=== PATIENT | male | born 1960 | race Caucasian/White ===

== ENCOUNTER → 2019-12-05 09:23 | Outpatient (BNVA) | payer BC, SELFPAY | PROVIDERS: PCP Nurse Practitioner Family; Visit Provider Urology | DX: R97.20 Elevated prostate specific antigen [PSA] (principal); R39.9 Unspecified symptoms and signs involving the genitourinary system | CPT/HCPCS: 81001; 84153 ==

== ENCOUNTER → 2020-03-06 09:22 | Outpatient (BNVA) | payer BC, SELFPAY | PROVIDERS: PCP Nurse Practitioner Family; Visit Provider Urology | DX: R97.20 Elevated prostate specific antigen [PSA] (principal); R39.9 Unspecified symptoms and signs involving the genitourinary system | CPT/HCPCS: 81001; 84153 ==

== ENCOUNTER → 2020-09-08 09:16 | Outpatient (BNVA) | payer OTHER, SELFPAY | PROVIDERS: PCP Nurse Practitioner Family; Visit Provider Urology | DX: R39.9 Unspecified symptoms and signs involving the genitourinary system (principal); R97.20 Elevated prostate specific antigen [PSA]; N40.1 Benign prostatic hyperplasia with lower urinary tract symptoms | CPT/HCPCS: 81003; 84153 ==

== ENCOUNTER → 2021-03-11 09:50 | Outpatient (BNVA) | payer OTHER, SELFPAY | PROVIDERS: PCP Nurse Practitioner Family; Visit Provider Urology | DX: N40.1 Benign prostatic hyperplasia with lower urinary tract symptoms (principal); R39.9 Unspecified symptoms and signs involving the genitourinary system; R97.20 Elevated prostate specific antigen [PSA]; N39.9 Disorder of urinary system, unspecified | CPT/HCPCS: 81003; 84153 ==

== ENCOUNTER 2021-12-09 11:05 | Outpatient (CLI) | payer OTHER, SELFPAY ==
--- NOTE | 2021-12-09 | US_ITS ---
WS: [id number] Gallbladder and right upper quadrant ultrasound, 12/09/2021 Clinical Data: ABDOMINAL PAIN COLICKY Comparison: None. Findings: The gallbladder shows no sludge or stone. The wall measures 0.13 cm with no pericholecystic fluid. The common bile duct is 0.24 cm and there are no intrahepatic ductal abnormalities. Liver shows no cysts or dilated intrahepatic ducts. The liver is dense and shows fatty infiltration. The liver measures 16.1 x 17.7 cm. There are areas of relatively decreased density in the medial aspe ct of the right lobe measuring 4.9 x 5.6 x 7.0 cm and in the inferior aspect of the right lobe measur ing 3.8 x 5.8 x 6.7 cm. These could represent areas of focal fat but CT scan of the liver is recommen ded The pancreas is not obscured by overlying bowel gas and no cyst, pseudocyst, or evidence of pancreati tis is noted. There is abundant fat surrounding the pancreas. Right kidney measures 11.4 cm and no cyst, masses or hydronephrosis can be seen. The aorta and inferior vena cava show no vascular abnormalities. US/US abdomen limited [id number] Impression: 1. Areas of decreased density in the right lobe of the liver which have no spec ific pattern but recommend CT scan of the liver. 2. Dense enlarged liver with fatty infiltration.
== END 2021-12-09 11:06 | disposition home or self-care (01) ==
LOC: RADOUTREAD 11:07
PROVIDERS: PCP Nurse Practitioner Family; Visit Provider Nurse Practitioner Family
DX: R10.84 Generalized abdominal pain (principal); K76.0 Fatty (change of) liver, not elsewhere classified
CPT/HCPCS: 76705

== ENCOUNTER 2022-03-18 10:17 | Emergency (ER) | payer OTHER, SELFPAY ==
[2022-03-18 10:24] VITALS: BP 174/90; PULSE 54; RESP 18; TEMP 36.4; O2SAT 97
--- NOTE | 2022-03-18 10:36 | XR_ITS ---
WS: [id number] Portable AP upright chest, 03/18/2022 Clinical Data: dyspnea/cough Comparison: None. Findings: No nodules, masses or effusions are seen. The heart is likely enlarged. The pulmonary vascu larity is not increased. No pneumonia or pneumothorax is seen. The aortic arch and descending thoraci c aorta show mild tortuosity. There are monitor leads on the chest wall. XR/XR chest 1V portable [id number] Impression: Cardiomegaly and atherosclerosis.
--- NOTE | 2022-03-18 10:36 | ECG_ITS ---
[facility] Test Date: 2022-03-18 Pat Name: Woodrow Hunter Department: Room: Gender: Male Test Driver: : 1960 Requested By: Marty Cordon Order Number: [id number] Dariel MD: Johan Quintana M.D. Measurements Intervals [place] Rate: 48 P: 26 TN: 167 QRS: -38 QRSD: 114 T: 15 QT: 427 QTc: 384 Interpretive Statements SINUS BRADYCARDIA LEFT AXIS DEVIATION [QRS AXIS < -30] INCOMPLETE RIGHT BUNDLE BRANCH BLOCK [90+ ms QRS DURATION, TERMINAL R IN V1/V2, 40+ ms S IN I/aVL/V4/V5/V6] MINIMAL VOLTAGE CRITERIA FOR LVH, CONSIDER NORMAL VARIANT [MEETS CRITERIA IN ONE OF: R(aVL), S(V1), R(V5), R(V5/V6)+S(V1)] No previous ECG available for comparison Electronically Signed On 03-19-2022 14:33:23 CDT by Johan Quintana M.D. [email or web address]
[2022-03-18 10:45] VITALS: BP 173/83; PULSE 50; RESP 20; TEMP 36.4; O2SAT 97
[2022-03-18 10:49] VITALS: BP 141/78; BP 146/75; BP 153/86
--- NOTE | 2022-03-18 10:49 | W.ED.DIZZY ---
HPI - Dizziness General: Chief Complaint: Dizziness Stated Complaint: dizzy, n/v Time Seen by Provider: 03/18/22 10:22 Source: patient Mode of arrival: ambulatory Limitations: no limitations History of Present Illness: HPI Narrative: 62-year-old male presents emergency room complaining of near syncopal episode. This morning he was around up around his home doing his usual activities he was walking and felt lightheaded and dizzy he gets nauseous and has vertiginous-like symptoms he notices those symptoms worsen when he leans back. He has a chronic bradycardia that he is known of for years and on arrival here his heart rates in the upper 40s and low 50s he states has been normal for him. He is not on any beta-blockers or any negative [place] tropes. He has no known history of coronary artery disease both of his parents did of coronary artery disease at advanced ages. His mother in her late 60s Father in his 70s. He is on lisinopril and tamsulosin as well as Crestor is not recently changed any medications. Is a known history of a sending aortic aneurysm that is been monitored. He is a little behind on his monitoring. He has not had any chest pain or back pain associated with the symptoms. MD elicited complaint: dizziness Onset (ago): hour(s) Timing: gradual onset Severity: mild Description: room spinning and lightheadedness Context: change in body position Exacerbating factors: movement/ambulation and change in body position Relieving factors: remaining still Associated symptoms: Denies chest pain, chills, malaise, nausea, nasal congestion or vomiting Associated neuro symptoms: Deny confusion, difficulty speaking, dysphagia, extremity weakness, facial numbness, facial weakness, gait changes, numbness in extremities or visual changes Review of Systems Const: Denies: fever(s), chills, body aches, change in appetite, fatigue or malaise ENMT: Denies: throat pain, ear or mastoid pain, nasal discharge or nasal congestion Card: Denies: chest pain, edema, dyspnea on exertion or orthopnea Resp: Denies: dyspnea, productive cough or non-productive cough GI: Denies: abdominal pain, nausea, vomiting, hematemesis, coffee ground emesis, dysphagia, diarrhea, constipation, bloating, hematochezia or melena : Denies: flank pain, dysuria, urinary frequency or urinary urgency Skin/Breast: Denies: rash or pruritus Neuro: Denies: numbness in extremities or confusion PFSH ED PFSH: Medical History (Updated 03/26/22 @ 00:02 by ) Elevated PSA Lower urinary tract symptoms (LUTS) Surgical History Hx of arthroscopy of right knee Family History Mother , AT AGE 64 Heart disease Father Healthy adult Other CAD (coronary artery disease) Social History Smoking and tobacco status: never smoked Alcohol intake: current Alcohol intake frequency: few times a month Adopted: No Caregiver/support person: No Lives independently: No Household members: spouse Marital status: Current occupational status: employed History of recent travel: No Current gender identity: Male Physical Exam Const: COMMON NORMALS: no acute distress GENERAL APPEARANCE: cooperative and comfortable ORIENTATION/CONSCIOUSNESS: Yes awake, Yes oriented to person, Yes oriented to place and Yes oriented to time HENMT: COMMON NORMALS: normocephalic, atraumatic, hearing grossly normal bilaterally, external ears normal, EAC's normal, TM's normal bilaterally, Normal nasal mucous membranes and turbinates present, moist oral mucous membranes and oropharynx normal HEAD & SCALP: normocephalic and atraumatic NOSE: Normal nasal mucous membranes and turbinates present EXTERNAL EAR: Yes external ears normal EXTERNAL AUDITORY CANAL: EAC's normal TYMPANIC MEMBRANE: TM's normal bilaterally Eye: COMMON NORMALS: Equal, round and reactive pupils present, EOMs intact bilaterally, conjunctivae normal and no scleral icterus CONJUNCTIVA: Yes conjunctivae normal PUPIL: Yes Equal, round and reactive pupils present Neck/C-Spine: COMMON NORMALS: full ROM, no lymphadenopathy, supple and no JVD Resp: COMMON NORMALS: normal respiratory effort, No retractions, No use of accessory muscles and clear to auscultation bilaterally AUSCULTATION: clear to auscultation bilaterally Cardio: COMMON NORMALS: no JVD, regular rate, regular rhythm and No murmurs present (Cardio) RATE: regular rate RHYTHM: regular rhythm GI: COMMON NORMALS: Soft to palpation and No hepatosplenomegaly present AUSCULTATION: Yes normoactive bowel sounds PALPATION: Yes Soft to palpation, No Tenderness to palpation present (GI), No Guarding due to palpation present (GI) and Yes No hepatosplenomegaly present Extremity: COMMON NORMALS: normal to inspection, capillary refill normal, no clubbing, cyanosis or edema, no calf tenderness and no pedal edema Neuro: SENSORIUM/ORIENTATION: Yes oriented to person, Yes oriented to place and Yes oriented to time OTHER: Neurological intact no focal neurologic deficits are noted on exam Skin: COMMON NORMALS: no rashes or lesions noted GENERAL SKIN EXAM: no rashes or lesions noted Course Vital Signs: Vital signs: Vital Signs Temperature 97.5 F L 03/18/22 14:35 Pulse Rate 55 L 03/18/22 14:35 Respiratory Rate 17 03/18/22 14:35 Blood Pressure 131/89 03/18/22 14:35 Pulse Oximetry 96 03/18/22 14:35 Oxygen Delivery Me thod 03/18/22 10:45 MDM - Dizziness Medical Decision Making Labs imaging and EKG reviewed as found in the chart. Was able to reproduce symptoms with movement of head. Medical Records I reviewed the patient's medical records. Lab Data I reviewed the patient's lab results. : 03/18/22 11:03 03/18/22 11:03 Radiology Impressions Chest X-Ray 03/18/22 10:36 Impression: Cardiomegaly and atherosclerosis. Laboratory Results WBC 6.4 10^3/uL (4.0-10.0) 03/18/22 11:03 RBC 5.14 10^6/uL (4.1-5.3) 03/18/22 11:03 Hgb 16.4 g/dL (11.7-16.6) 03/18/22 11:03 Hct 47.3 % (42.0-52.0) 03/18/22 11:03 MCV 92.0 fl (80-94) 03/18/22 11:03 MCH 31.9 pg (28.0-34.0) 03/18/22 11:03 MCHC 34.7 g/dL (30.0-36.0) 03/18/22 11:03 RDW 12.7 % (12.1-15.1) 03/18/22 11:03 Plt Count 254 10^3/cmm (130-400) 03/18/22 11:03 MPV 8.6 fL (7.4-10.4) 03/18/22 11:03 Neut % (Auto) 54.1 % 03/18/22 11:03 Lymph % (Auto) 34.6 % 03/18/22 11:03 [place] % (Auto) 8.6 % 03/18/22 11:03 Eos % (Auto) 1.9 % 03/18/22 11:03 Baso % (Auto) 0.5 % 03/18/22 11:03 Neut # (Auto) 3.45 10^3/uL (1.8-7.7) 03/18/22 11:03 Lymph # (Auto) 2.2 10^3/uL (0.8-4.8) 03/18/22 11:03 [place] # (Auto) 0.6 10^3/uL (0.2-0.9) 03/18/22 11:03 Eos # (Auto) 0.1 10^3/uL (0.0-0.8) 03/18/22 11:03 Baso # (Auto) 0.0 10^3/uL (0.0-0.1) 03/18/22 11:03 Nucleated RBC % (auto) 0 % 03/18/22 11:03 Nucleated RBCs # 0.0 /100WBC 03/18/22 11:03 Sodium 132 mmol/L (136-145) L 03/18/22 11:03 Potassium 4.1 mmol/L (3.5-5.1) 03/18/22 11:03 Chloride 98 mmol/L (98-107) 03/18/22 11:03 Carbon Dioxide 25 mmol/L (22-29) 03/18/22 11:03 Anion Gap 13.1 (5-19) 03/18/22 11:03 BUN 14 mg/dL (8-23) 03/18/22 11:03 Creatinine 0.8 mg/dL (0.7-1.2) 03/18/22 11:03 GFR Calculation 97.6 mL/min (90-130) 03/18/22 11:03 Glucose 124 mg/dL (65-115) H 03/18/22 11:03 Calculated Osmolality 276 mOsm/kg (285-295) L 03/18/22 11:03 Calcium 9.3 mg/dL (8.5-10.5) 03/18/22 11:03 Total Bilirubin 0.5 mg/dL (0.15-1.2) 03/18/22 11:03 AST 27 U/L (0-40) 03/18/22 11:03 ALT 28 U/L (0-41) 03/18/22 11:03 Alkaline Phosphatase 85 U/L (40-130) 03/18/22 11:03 Troponin T Baseline 9 ng/L (0-15) 03/18/22 11:03 Troponin T 120 Minute 11.18 ng/L (0-15) 03/18/22 13:08 Delta Troponin T 2.18 ABS# (0-10) 03/18/22 13:08 Total Protein 7.1 g/dL (6.6-8.7) 03/18/22 11:03 Albumin 4.4 g/dL (3.5-5.2) 03/18/22 11:03 Globulin 2.7 g/dL (1.3-4.6) 03/18/22 11:03 Urine Color Yellow (Yellow) 03/18/22 12:58 Urine Appearance Clear (CLEAR) 03/18/22 12:58 Urine pH 9 (5-7) H 03/18/22 12:58 Ur Specific [place] 1.010 (1.005-1.030) 03/18/22 12:58 Urine Protein Neg (Negative) 03/18/22 12:58 Urine Glucose (UA) Norm (Normal) 03/18/22 12:58 Urine Ketones Negative (Negative) 03/18/22 12:58 Urine Blood Neg (Negative) 03/18/22 12:58 Urine Nitrate Negative (Negative) 03/18/22 12:58 Urine Bilirubin Neg (Negative) 03/18/22 12:58 Prot Sulfosalicylic Acd Negative (Negative) 03/18/22 12:58 Urine Urobilinogen Norm mg/dL (Negative) 03/18/22 12:58 Ur Leukocyte Esterase Negative (Negative) 03/18/22 12:58 Discharge Plan Discharge Patient Disposition: Home Clinical Impression: Hypertension, Benign paroxysmal positional vertigo, Bradycardia, Aneurysm, thoracic aortic Condition: Stable Prescriptions: New amlodipine 5 mg tablet 5 mg PO DAILY Qty: 30 0RF meclizine 25 mg tablet 25 mg PO QID PRN (Reason: dizziness) Qty: 20 0RF No Action rosuvastatin 20 mg tablet 20 mg PO DAILY tamsulosin 0.4 mg capsule 0.4 mg PO DAILY PRN lisinopril 10 mg tablet See Rx Instructions .ROUTE .COMPLEX Qty: 30 0RF Dose Instruction: TAKE 1 TABLET BY MOUTH DAILY Rx Instructions: TAKE 1 TABLET BY MOUTH DAILY Discharge Orders: Discharge ED (Routine); Ordered 03/18/22 Ordered By: Marty Johnson Referrals: Yesenia Jordan FNP [Primary Care Provider] - Discharge Diet: Usual diet Discharge Activity: Limit activity as instructed Patient Instructions: Opioid Safety Activity Restrictions/Additional Instructions: Case management make arrangements for 48-hour Holter monitor and Lexiscan stress test. You should follow-up with Dr. Michele. If you have any worsening problems return. Continue lisinopril add amlodipine. Use meclizine as needed to relieve dizziness symptoms. Return if you have further problems. You should follow-up with Dr. Michele for continued monitoring for the thoracic aortic aneurysm. Coding Level of Care Code ED Juke Box Servicer for Marino Monroe
[2022-03-18 10:58] VITALS: BMI 31.1
[2022-03-18 11:08] LABS: Basophils % 0.5 %; Eosinophils # 0.1 10^3/uL (0.0-0.8); Eosinophils % 1.9 %; Hematocrit 47.3 % (42.0-52.0); Hemoglobin 16.4 g/dL (11.7-16.6); Lymphocytes # 2.2 10^3/uL (0.8-4.8); Lymphocytes % 34.6 %; Mean Corpuscular HGB Conc 34.7 g/dL (30.0-36.0); Mean Corpuscular Hemoglobin 31.9 pg (28.0-34.0); Mean Platelet Volume 8.6 fL (7.4-10.4); Monocytes # 0.6 10^3/uL (0.2-0.9); Monocytes % 8.6 %; Neutrophils # 3.45 10^3/uL (1.8-7.7); Neutrophils % 54.1 %; Nucleated Red Blood Cells % 0 %; Platelet Count 254 10^3/cmm (130-400); Red Blood Count 5.14 10^6/uL (4.1-5.3); Red Cell Distribution Width 12.7 % (12.1-15.1); White Blood Count 6.4 10^3/uL (4.0-10.0)
[2022-03-18 11:29] LABS: Alanine Aminotransferase 28 U/L (0-41); Albumin Level 4.4 g/dL (3.5-5.2); Alkaline Phosphatase 85 U/L (40-130); Blood Urea Nitrogen 14 mg/dL (8-23); Calcium 9.3 mg/dL (8.5-10.5); Carbon Dioxide 25 mmol/L (22-29); Chloride 98 mmol/L (98-107); Globulin 2.7 g/dL (1.3-4.6); Glomerular Filtration Rate 97.6 mL/min (90-130); Glucose 124 mg/dL (65-115); Osmolality Calculated 276 mOsm/kg (285-295); Sodium 132 mmol/L (136-145); Total Bilirubin 0.5 mg/dL (0.15-1.2); Total Protein 7.1 g/dL (6.6-8.7)
[2022-03-18 11:31] LABS: Anion Gap 13.1 (5-19); Aspartate Amino Transferase 27 U/L (0-40); Potassium 4.1 mmol/L (3.5-5.1)
[2022-03-18 11:33] LABS: Troponin(5th) Baseline 9 ng/L (0-15)
--- NOTE | 2022-03-18 12:53 | PC.NURSE ---
PT IS ON CONTINUOUS SPO2, NIBP, AND CM.
[2022-03-18 12:54] VITALS: BP 144/78; PULSE 53; RESP 16; O2SAT 98
[2022-03-18 13:06] LABS: Add Urine Microscopic? NO; Charge for UA Resulting for Rev
[2022-03-18 13:09] LABS: Bilirubin Urine Neg (Negative); Blood Urine Neg (Negative); Glucose Urine UA Norm (Normal); Ketones Urine Negative (Negative); Leukocyte Esterase Urine Negative (Negative); Nitrate Urine Negative (Negative); Protein Urine Neg (Negative); Sulfosalicylic Acid Urine Negative (Negative); Urine Appearance Clear (CLEAR); Urine Color Yellow (Yellow); Urobilinogen Urine Norm (Negative); pH Urine 9 (5-7)
[2022-03-18 13:46] LABS: Troponin 5 2HR 11.18 ng/L (0-15)
[2022-03-18 14:18] LABS: Troponin 5 2HR Delta 2.18 ABS# (0-10)
[2022-03-18 14:34] VITALS: BP 131/89; PULSE 55; RESP 17; TEMP 36.4; O2SAT 96
[2022-03-18 14:35] VITALS: BP 131/89; PULSE 55; RESP 17; TEMP 36.4; O2SAT 96
--- NOTE | 2022-03-19 10:22 | DCPLANNER ---
Addendum entered by Dimple Smith 03/23/22 16:16: Patient had an appointment scheduled for 03.22.22 for a holter monitor - patient did attend appointment. Original Note: watershed program manager had message to schedule an outpatient 48 hour holter monitor for patient. watershed program manager faxed signed order to heart care for the monitor. [facility] will call patient with appointment information.
--- NOTE | 2022-03-19 10:24 | DCPLANNER ---
Addendum entered by Dimple Smith 07/15/22 14:20: medical staff services manager received notification that patient no longer wanted to have the test scheduled. Original Note: medical staff services manager had message to schedule an outpatient stress test for patient. medical staff services manager sent signed order to centralized scheduling, who will call patient with appointment information.
--- NOTE | 2022-03-19 10:25 | DCPLANNER ---
Addendum entered by Dimple Smith 07/15/22 14:21: Patient did attend appointment. Addendum entered by Dimple Smith 03/23/22 16:17: Patient has a follow up appointment scheduled for Tuesday, April 05, 2022 at 3:[address] Michele at [facility]. Clinic will call patient with appointment information. Original Note: wind field manager had message to schedule an outpatient CTA for patient. wind field manager faxed signed order to centralized scheduling, who will call patient with appointment information. wind field manager also had message to schedule a follow up appointment for patient with cardiology, Dr. Michele. wind field manager sent patients information to the front office staff at [facility]. Clinic will call patient with appointment information.
== END 2022-03-18 14:38 | disposition home or self-care (01) ==
PROVIDERS: Emergency Provider Family Medicine; PCP Nurse Practitioner Family
DX: H81.10 Benign paroxysmal vertigo, unspecified ear (principal); I10 Essential (primary) hypertension; R00.1 Bradycardia, unspecified; I71.2 Thoracic aortic aneurysm, without rupture
CPT/HCPCS: 36415; 71045; 80053; 81003; 84484; 85025; 93005; 99285

== ENCOUNTER 2023-08-01 09:24 | Emergency (ER) | payer OTHER, SELFPAY ==
--- NOTE | 2023-08-01 09:27 | CT_ITS ---
WS: [id number] CT CERVICAL SPINE HISTORY: trauma TECHNIQUE: Contiguous 2.0 mm axial imaging performed through the entire cervical spine. Sagittal and coronal reformats also performed. All CT scans at [facility] use at least one of these dose o ptimization techniques: automated exposure control; mA and/or kV adjustment per patient size (include s targeted exams where dose is matched to clinical indication); or iterative reconstruction. DLP: 1714.31 mGy.cm COMPARISON: None available. Normal cervical alignment. Craniocervical junction, atlantodental interval and C1-C2 alignment is nor mal. Osteophytic ridging around the vertebral bodies with minimal disc space narrowing. Craniocervical preston ction is normal. Lateral masses of C1 and C2 are aligned. The odontoid is intact. C2-C3: Normal. C3-C4: Osteophytic ridging with a small central disc protrusion. Moderate LEFT and mild RIGHT foramin al stenosis. C4-C5: Mild osteophytic ridging and bilateral foraminal stenosis. C5-C6: Moderate osteophytic ridging encroaching upon the ventral thecal sac. Moderate foraminal steno sis. C6-C7: Osteophytic ridging and moderate foraminal stenosis. C7-T1: Normal. Soft tissues are normal. Lung apices are clear. IMPRESSION: 1. No acute cervical spine fracture. 2. Multilevel foraminal stenosis and osteophytosis.
--- NOTE | 2023-08-01 09:27 | CT_ITS ---
WS: [id number] CT HEAD NONCONTRAST HISTORY: trauma TECHNIQUE: Contiguous axial imaging performed through the brain in 2.5 mm imaging. Bone and soft tiss ue windows. Sagittal and coronal reformats reviewed. All CT scans at [facility] use at least one of these dose optimization techniques: automated exposure control; mA and/or kV adjustment per pa tient size (includes targeted exams where dose is matched to clinical indication); or iterative recon struction. DLP: 1714.31 mGy.cm COMPARISON: None available. No acute intracranial hemorrhage, midline shift or mass effect. No atrophy or prior infarcts or herniation. Ventricles: Normal size with no hydrocephalus. Paranasal sinuses: As visualized are clear. Mastoid air cells: Well pneumatized. Calvarium and scalp: No skull fracture. There is a tiny amount of edema over the parietal vertex. Thi s may be posttraumatic. No fracture. IMPRESSION: 1. No acute intracranial hemorrhage or edema. 2. No skull fracture. 3. Very small amount of scalp edema over the parietal vertex. This may be associated with the recent fall.
[2023-08-01 10:25] VITALS: BP 152/86; PULSE 58; TEMP 36.6; O2SAT 94; BMI 31.6
--- NOTE | 2023-08-01 10:40 | ED_ITS ---
HPI - Head Injury General: Chief complaint: Head Injury Stated complaint: Fell, hit head, passed out Time Seen by Provider: 08/01/23 09:27 Source: patient Mode of arrival: ambulatory History of Present Illness: 63-year-old male presents emergency room after a slip and fall now as he fell backwards and hit his head. He was significantly stunned but never really fully lost consciousness no nausea or vomiting no vision changes he is otherwise awake and alert. No vomiting denies any other injury MD Complaint: head injury Onset (ago): minute(s) Mechanism of Injury: fall Place: home Loss of Consciousness: no Location of injury: occipital Severity: mild Other Injuries: none Associated symptoms: Deny amnesia, confusion, nausea, neck pain, numbness, syncope, tingling, vertigo, visual changes, vomiting or weakness Review of Systems Const: Denies: fever(s) or chills Card: Denies: syncope Resp: Denies: dyspnea GI: Denies: nausea or vomiting : Denies: dysuria, urinary frequency or urinary urgency Musc: Denies: neck pain Skin/Breast: Denies: rash Neuro: Denies: vertigo or confusion PFSH ED PFSH: Medical History Lower urinary tract symptoms (LUTS) Elevated PSA Surgical History Hx of arthroscopy of right knee Family History Mother , AT AGE 64 Heart disease CAD (coronary artery disease) Father Healthy adult CAD (coronary artery disease) Lung disease Grandmother Cancer Diabetes Denies family history of Clotting disorder Dementia Chronic kidney disease (CKD) Suicide Anesthesia complication Bleeding disorder Stroke Social History Smoking and tobacco/nicotine status: never used tobacco/nicotine Alcohol intake: current Alcohol intake frequency: few times a month Substance/Drug Use: never Adopted: No Caregiver/support person: No Lives independently: No Household members: spouse Marital status: Current occupational status: employed Current gender identity: Male Physical Exam Const: COMMON NORMALS: no acute distress GENERAL APPEARANCE: cooperative and comfortable ORIENTATION/CONSCIOUSNESS: Yes awake, Yes oriented to person, Yes oriented to place and Yes oriented to time HENMT: COMMON NORMALS: normocephalic, atraumatic and hearing grossly normal bilaterally HEAD & SCALP: normocephalic and atraumatic Resp: COMMON NORMALS: normal respiratory effort, No retractions, No use of accessory muscles and clear to auscultation bilaterally AUSCULTATION: clear to auscultation bilaterally Cardio: COMMON NORMALS: regular rate, regular rhythm and No murmurs present (Cardio) RATE: regular rate RHYTHM: regular rhythm GI: COMMON NORMALS: Soft to palpation and No hepatosplenomegaly present AUSCULTATION: Yes normoactive bowel sounds PALPATION: Yes Soft to palpation, No Tenderness to palpation present (GI), No Guarding due to palpation present (GI) and Yes No hepatosplenomegaly present Extremity: COMMON NORMALS: normal to inspection, capillary refill normal, no clubbing, cyanosis or edema, no calf tenderness and no pedal edema Neuro: SENSORIUM/ORIENTATION: Yes oriented to person, Yes oriented to place and Yes oriented to time Skin: COMMON NORMALS: no rashes or lesions noted GENERAL SKIN EXAM: no rashes or lesions noted Course Vital Signs: Vital signs: Vital Signs Temperature 97.9 F 08/01/23 10:25 Pulse Rate 58 L 08/01/23 10:25 Blood Pressure 152/86 08/01/23 10:25 Pulse Oximetry 94 08/01/23 10:25 Oxygen Delivery Me thod Room Air 08/01/23 10:25 MDM - Head Injury Medcial Decision Making Fall with mild concussion CT head and neck negative otherwise exam unremarkable discharge patient home concussion precautions given follow-up as needed Medical Records I reviewed the patient's medical records. Lab Data I reviewed the patient's lab results. All radiology interpretation(s) finalized by discharge Discharge Plan Discharge Patient Disposition: Home Clinical Impression: Concussion without loss of consciousness, Fall Condition: Stable Prescriptions: No Action rosuvastatin 20 mg tablet 10 mg PO DAILY tamsulosin 0.4 mg capsule 0.4 mg PO DAILY PRN lisinopril 10 mg tablet 20 mg PO DAILY Discharge Orders: Discharge ED (Routine); Ordered 08/01/23 Ordered By: Marty Johnson Referrals: Yesenia Jordan FNP [Primary Care Provider] - Discharge Diet: Usual diet Discharge Activity: Increase activity as tolerated Patient Instructions: Concussion (ED), Opioid Safety, Pain Management Activity Restrictions/Additional Instructions: Thank you for choosing [facility] for your healthcare needs today. Please realize this is an emergency room and that we are providing you with a medical screening exam and this may not be complete and all inclusive of all the testing and or work up that you may need to determine your ailment or severity of your illness. It is very important that you follow up as instructed or that you return to the Emergency Department should you have concerns or if your condition changes or worsens in any way. Coding Level of Care Code ED Printer Slotter Operator for Marino Monroe
[2023-08-01 10:57] VITALS: BP 133/84; PULSE 60; O2SAT 95
== END 2023-08-01 10:50 | disposition home or self-care (01) ==
PROVIDERS: Emergency Provider Family Medicine; PCP Nurse Practitioner Family
DX: S06.0X0A Concussion without loss of consciousness, initial encounter (principal); W19.XXXA Unspecified fall, initial encounter
CPT/HCPCS: 70450; 72125; 99284

== ENCOUNTER 2024-05-28 13:00 | Outpatient (RCR) | payer MEDICARE, OTHER, SELFPAY | END 2024-06-09 23:59 | disposition home or self-care (01) | LOC: SPT 13:00 | PROVIDERS: Visit Provider Emergency Medicine | DX: M17.11 Unilateral primary osteoarthritis, right knee (principal) | CPT/HCPCS: 97110; 97112; 97161 ==

== ENCOUNTER 2024-06-10 06:00 | Outpatient (RCR) | payer MEDICARE, OTHER, SELFPAY | END 2024-07-10 23:59 | disposition home or self-care (01) | LOC: SPT 06:00 | PROVIDERS: Visit Provider Emergency Medicine | DX: M17.11 Unilateral primary osteoarthritis, right knee (principal) | CPT/HCPCS: 97110 ==

== ENCOUNTER 2025-04-16 10:12 | Emergency (ER) | payer MEDICARE, OTHER, SELFPAY ==
--- OUTSIDE RECORDS SUMMARY | 2025-02-01 03:20 | XMS_ITS ---
Author Organization [facility] Address [address] [place] [address] Care Team Providers Care 3Rd Mate Name Role Phone Felipe Hanna Primary Care Provider REASON FOR VISIT pain, sinus Encounters Encounter Location Date Provider Diagnosis [facility] [address] [phone] 02/01/2025 Felipe Hanna Plan Of Treatment Next Appt Details Provider Name:Felipe Hanna, 07/30/2025 01:00:00 PM, [address], [id number], Progress Notes * HERNANDO DENISE CDOB:1960 (65 yo M)Acc No.[id number]:02/01/2025 Progress Notes Patient: HERNANDO ADEN Nancy Provider: Nancy Hanna MD :1960 A ge:64 Y S ex:Male Date:02/01/2025 Address:[address] [place], [place] [id number] Subjective: * Chief Complaints: * P ain, sinus Plan: * Preventive Medicine: Fall Risk Assessment: F all Risk Assessment Fall Risk Assessment O ne fall without injury in the past year Screenings: C ARE FOR OLDER ADULTS Functional Status N o Impairment for Functional Status 01/28/25 Function Status Assessment date 0 01/28/2025 01/28/25 C OLORECTAL CANCER SCREENING: Date of last colonoscopy 0 12/27/2018 D EPRESSION SCREENING: Date of most recent screenin 08/05/2023 F ALL RISK SCREENING Fall Risk Assessment: O ne fall with injury in the past year V ACCINATIONS: Influenza vaccinations: d oes not take shot P HQ9 - 06/05/24. Billing Information: * Procedure Codes: Care Plan Details* * Electronic signature of Roselia Hanna MD on 04/16/2025 at 10:30 AM CDT Sign off status: Pending * Provider: Nancy Hanna MD Date: 0 02/01/2025 Generated for Tomsa pinto/Patricio/Isabelleitting on: 10:30 AM CDT
[2025-04-16 10:21] VITALS: BP 150/82; PULSE 70; TEMP 36.5; O2SAT 97; BMI 31.7
--- OUTSIDE RECORDS SUMMARY | 2025-04-16 10:31 | XMS_ITS | Clinical Summary ---
Author Organization [facility] Address [address] [place] [address] Care Team Providers Care Housing Assistant Name Role Phone Unavailable Primary Care Provider Unavailabl e Medications No known medications Active Problems No known active problems Social History Tobacco Use Types Packs/Day Years Used Date Smoking Tobacco: Never Passive Smoke Exposure: Never Smokeless Tobacco: Never Tobacco Cessation:Counseling Given: No Sex and Gender Information Value Date Recorded Sex Assigned at Not on file Legal Sex Male 3:49 PM CDT Gender Identity Not on file Sexual Orientation Not on file Plan of Treatment Health Maintenance Due Date Last Done Comments COLORECTAL SCREENING 02/26/2004 Colorectal Cancer Screening 02/26/2004 FIT-DNA Q 3 years 02/26/2004 FIT/FOBT Q 1 year 02/26/2004 Flex Sig/CT Colonography Q 5 years 02/26/2004 PNEUMOCOCCAL VACCINE 50+ YEA RS (1 of 1 - PCV) 2009 ZOSTER VACCINE (1 of 2) 2009 DTAP/TDAP/TD VACCINES (2 - Td or Tdap) 07/23/2018 INFLUENZA VACCINE (#1) 2025 04/10/2015 COVID-19 Vaccine (3 - 2024- season) 2025, 12/30/2020 RSV VACCINE (60+ or ) (1 - 1-dose 75+ series) 2034 Insurance [employer] [facility] EXCHANGE [id number] [id number]
--- OUTSIDE RECORDS SUMMARY | 2025-04-16 10:31 | XMS_ITS | Patient Health Record ---
Author Organization [facility] Address [address] [place] [address] Care Team Providers Care Bung Driver Name Role Phone Felipe Hanna Primary Care Provider Allergies Allergen (clinical drug ingredient) Drug/Non Drug Allergy documented on EMR Reaction Allergy Type Onset Date Status amlodipine Amlodipine sluggish Drug Allergy Activ e Results Component Value Reference Range Notes CT Sinus w/o Contrast-[id number] Reviewed date:2025 11:24:56 AM Interpretation: Performing Lab: Notes/Report: See Below For Report CT Sinus w/o Contrast Read See Below For Report CT Sinus w/o Contrast-[id number] Reviewed date:03/21/2025 08:24:19 AM Interpretation: Performing Lab: Notes/Report: [id number]=iSite US Scrotum/Testicle-[id number] Reviewed date:03/21/2025 04:42:28 PM Interpretation: Performing Lab: Notes/Report: [id number]=iSite Schedule Confirmation Reviewed date:02/21/2025 09:52:01 AM Interpretation: Performing Lab: Notes/Report: US Scrotum/Testicle Schedule Confirmation Reviewed date:02/21/2025 09:52:00 AM Interpretation: Performing Lab: Notes/Report: CT Sinus w/o Contrast US Scrotum/Testicle-[id number] Reviewed date:03/21/2025 08:24:29 AM Interpretation: Performing Lab: Notes/Report: See Below For Report US Scrotum/Testicle Read See Below For Report EGD w [id number] Reviewed date:07/10/2024 10:13:50 AM Interpretation: Performing Lab: Notes/Report: EGD, Upper GI Diagnostic-[id number] 35 Reviewed date:07/10/2024 10:07:37 AM Interpretation: Performing Lab: Notes/Report: Reason For Referral Reason Possible mucus reten tion cyst Diagnosis 1 Chronic sinus compla ints (R09.89) Referral Organization [facility] Referring Provider First Name Aroldo gamez Referring Provider Last Name Hanna Referring Provider Speciality Internal M edicine Referred Provider [facility] Referred Provider Specialty Ear, nose an d throat surgeon General Notes Sivan Benjamin 11:39:29 AM CDT > Faxed [facility] [phone], Sivan Benjamin 03/08/2025 11:25:48 AM CDT > Pt was in clinic on 03/05- Office will be faxing over office Vladislav krishnamurthy Heidi 03/12/2025 08:06:43 AM CDT > PROGRESS NOTES IN REFERRAL FILE Referral Priority Routine Referral Appointment Date 03/05/2025 Medications Medication SIG (Take, Route, Frequency, Duration) Notes Start Date End Date Status Pantoprazole Sodium 40 MG Tablet Delayed Release TAKE 1 TABLET BY MOUTH EVERY DAY Orally Twice; Duration: 90 days Active Tamsulosin HCl 0.4 MG Capsule 1 capsule Orally Once a day; Duration: 90 days as needed Active Rosuvastatin Calcium 10 MG Tablet 1 tablet Orally Once a day; Duration: 30 day(s) 06/07/2022 Not-Taking Lisinopril 20 MG Tablet 1 tablet Orally Once a day; Duration: 30 day(s) 06/07/2022 Not-Taking Kyzatrex 200 MG Capsule 1 capsule with f ood Orally Twice a day Not-Taking CPAP Machine By Mouth/Nose Nightly Active Social History Tobacco Use: Social History Observation Description Date Details (start date - stop date) Never Smoker NA - NA Social History Depression Screening Social Info Question Answer Notes depression screening findings Findings Negative (0 -4) 01/28/25 PHQ-9 Little interest or p javier in doing things Not at all Feeling down, depressed, or hopeless Not at all Trouble falling or staying asleep, or sleeping t oo much Not at all Feeling tired or having little energy Not at all Poor appetite or overeating Not at all Feeling bad about yourself, or that you are a failure, or have let yourself or your family down Not at all Trouble concentrating on thi ngs, such as reading the newspaper or watching television Not at all Moving or speaking so slowly that other people could have noticed. Or the opposite ? being so fidgety or restless that you have been moving around a lot more than usual Not at all Thoughts that you would be b jose off , or of hurting yourself in some way Not at all Total Score 0 Drugs/Alcohol: Social Info Question Answer Notes Alcohol Screen (Audit-C) Did you have a drink containing alcohol in the past year? Yes How often did you have a drink containing alcohol in the past year? 2 to 4 times a month (2 points) Points 2 Interpretation Negative Household: Social Info Question Answer Notes Household Private Home With spouse/life partner Marital status: Tobacco Use: Social Info Question Answer Notes Tobacco Control (Standard) Tobacco use: Nonsmoker Section Notes: 06/05/24 Dep -06/05/24 Tob - 06/05/24 Dep -06/05/24 Tob - 06/05/24 CIME Dep/Tob 01/28/25 Dep -06/05/24 Tob - 06/05/24 CIME Dep/Tob 01/28/25 Problems Problem Type SNOMED Code ICD Code Onset Dates Problem Status W/U Status Risk Notes Problem Chronic sinusitis (disorder) (95570614) Chronic sinus complaints (R09.89) Active confirmed Problem Swelling of testicle (finding) (967604240) Testicular swelling (N50.89) Active confirmed Problem Gastroduodenitis (887310276) Gastritis without bleeding, unspecified chronicity, unspecified gastritis type (K29.70) Active confirmed Problem Gastroesophageal reflux disease with esophagitis (disorder) (049696036) Gastro-esophag eal reflux disease with esophagitis, without bleeding (K21.00) Active confirmed Problem Heartburn (95210999) Chronic heartburn (R12) Active confirmed Vital Signs Heart Rate 67 /min 02/20/2025 Temperature 98.4 degrees Fahrenheit 02/20/2025 Blood pressure diastolic 82 mm Hg 02/20/2025 Height-cm 175.26 cm 02/20/2025 Oximetry 95 % 02/20/2025 Weight-kg 98.43 kg 02/20/2025 Height 69 in 02/20/2025 Blood pressure systolic 139 mm Hg 02/20/2025 Weight 217 lbs 02/20/2025 BMI 32.04 kg/m2 02/20/2025 Encounters Encounter Location Date Provider Diagnosis [facility] [address] [phone] 06/05/2024 Felipe Hanna Chronic heartburn R12 and Depression screen Z13.31 [facility] [address] [place] [address] 06/29/2024 Felipe Hanna Abdominal pain, unspecified abdominal location R10.9 ; Gastritis without bleeding, unspecified chronicity, unspecified gastritis type K29.70 ; Gastro-esophageal reflux disease with esophagitis, without bleeding K21.00 and Chronic heartburn R12 [facility] [address] [place] [phone] 07/30/2024 Felipe Hanna Chronic heartburn R12 and Gastritis without bleeding, unspecified chronicity, unspecified gastritis type K29.70 [facility] [address] [place] [phone] 01/28/2025 Felipe Hanna Gastritis without bleeding, unspecified chronicity, unspecified gastritis type K29.70 ; Chronic heartburn R12 and Depression screen Z13.31 [facility] [address] [place] [phone] 02/20/2025 Felipe Hanna Chronic heartburn R12 ; Chronic sinus complaints R09.89 ; Testicular swelling N50.89 ; Gastritis without bleeding, unspecified chronicity, unspecified gastritis type K29.70 and Gastro-esophageal reflux disease with esophagitis, without bleeding K21.00 [facility] [address] [place] [phone] 08/17/2024 Felipe Hanna [facility] [address] [place] [phone] 01/28/2025 Felipe Hanna [facility] [address] [place] [phone] 2025 Felipe Hanna Chronic sinus complaints R09.89 Assessments Encounter Date Diagnosis (ICD Code) Assessment Notes Treatment Notes Treatment Clinical Notes Section Notes 06/05/2024 Chronic heartburn (ICD-10 - R12) --- to be completed at [facility] -x--to be completed at [facility] ---to be completed at [facility] ---to be completed at [facility] 07/30/2024 Chronic heartburn (ICD-10 - R12) 01/28/2025 Gastritis without bleeding, unspecified chronicity, unspecified gastritis type (ICD-10 - K29.70) Take meds as directed. Notify if any worsening, new symptoms as directed or any increase. Diet as directed as tolerated. Avoid known triggers. Increase fluids as directed. 01/28/2025 Chronic heartburn (ICD-10 - R12) 02/20/2025 Chronic sinus complaints (ICD-10 - R09.89) r 02/20/2025 Chronic heartburn (ICD-10 - R12) r 2025 Chronic sinus complaints (ICD-10 - R09.89) 06/29/2024 Abdominal pain, unspecified abdominal location (ICD-10 - R10.9) 06/29/2024 Gastritis without bleeding, unspecified chronicity, unspecified gastritis type (ICD-10 - K29.70) 06/05/2024 Depression screen (ICD-10 - Z13.31) 06/29/2024 Gastro-esophagea l reflux disease with esophagitis, without bleeding (ICD-10 - K21.00) 02/20/2025 Testicular swelling (ICD-10 - N50.89) r 01/28/2025 Depression screen (ICD-10 - Z13.31) 07/30/2024 Gastritis without bleeding, unspecified chronicity, unspecified gastritis type (ICD-10 - K29.70) discussed with pt results of EGD. All questions were answered and understood by pt 02/20/2025 Gastritis without bleeding, unspecified chronicity, unspecified gastritis type (ICD-10 - K29.70) r 06/29/2024 Chronic heartburn (ICD-10 - R12) 02/20/2025 Gastro-esophagea l reflux disease with esophagitis, without bleeding (ICD-10 - K21.00) r 06/29/2024 Other see scanned document from [facility] in patients documents. Plan Of Treatment Next Appt Details Provider Name:Felipe Hanna, 07/30/2025 01:00:00 PM, [address], [phone], Insurance Providers Payer Name Payer Address Payer Phone Subscriber Number Group Number Insured Name Patient Relationship to Insured Coverage Start Date Coverage End Date [place] [address] [address] [place] [address] [id number] HERNANDO DENISE Self - patient is the insured [employer] [place] [address] [place] [address] [id number] HERNANDO DENISE Self - patient is the insured Medical (General) History Medical History History ICD Code elevated PSA lower urinary tract symptoms Umbilical hernia allergies Surgical History Surgery Date(Month/Year) Hx of arthroscopy of right knee
--- OUTSIDE RECORDS SUMMARY | 2025-04-16 10:31 | XMS_ITS | Patient Health Record ---
Author Organization [facility], [facility] Address [address] [place] [address] Care Team Providers Care Anodic Treater Name Role Phone Julianonel GODINEZN Yesenia Primary Care Provider Unavaila SILVERIO Power Unavailable [phone] DELON NIETO Unavailable [phone] Delon Byrne Unavailable [phone] Allergies No Known Allergies Results Component Value Reference Range Notes Testosterone Total Reviewed date:05/18/2024 08:03:54 AM Interpretation: Performing Lab: Notes/Report: CBC w/ Auto Diff Reviewed date:04/24/2024 10:22:27 AM Interpretation: Performing Lab: Notes/Report: Reason For Referral No Information Medications Medication SIG (Take, Route, Frequency, Duration) Notes Start Date End Date Status Kyzatrex 200 MG 1 capsule with food Orally Twice a day; Duration: 30 days 01/17/2024 Not-Taking Kyzatrex 200 MG 1 capsule with food Orally Twice a day; Duration: 30 days 12/15/2023 Not-Taking Lisinopril 20 MG 1 tablet Orally Once a day Not-Taking Kyzatrex 200 MG 1 capsule with food Orally Twice a day; Duration: 30 days 03/28/2024 Not-Taking Kyzatrex 200 MG 1 capsule with food Orally Twice a day; Duration: 30 days 01/17/2024 Not-Taking Tamsulosin HCl 0.4 MG 1 capsule Orally O nce a day Not-Taking Kyzatrex 200 MG 2 capsules with food Orally Twice a day; Duration: 30 days 05/25/2024 Not-Taking Kyzatrex 200 MG 1 capsule with food Orally Twice a day; Duration: 30 days 04/24/2024 Not-Taking Kyzatrex 200 MG 1 capsule with food Orally Twice a day; Duration: 30 days 12/14/2023 Not-Taking Kyzatrex 200 MG 2 capsule with food Orally Twice a day; Duration: 30 days 06/25/2024 Not-Taking Pantoprazole Sodium 40 MG 1 tablet Orall y Once a day Active Kyzatrex 200 MG 2 capsule with food Orally Twice a day; Duration: 30 days 06/25/2024 Not-Taking Kyzatrex 200 MG 1 capsule with food Orally Twice a day; Duration: 30 days 03/28/2024 Not-Taking Kyzatrex 200 MG 1 capsule with food Orally Twice a day; Duration: 30 days 03/28/2024 Not-Taking Social History Tobacco Use: Social History Observation Description Date Details (start date - stop date) Never Smoker NA - NA Tobacco Use/Smoking Question Answer Notes Tobacco use: nonsmoker Problems Problem Type SNOMED Code ICD Code Onset Dates Problem Status W/U Status Risk Notes Problem Benign prostatic hyperplasia (743685003) BPH (benign prostatic hyperplasia) (N40.0) Active confirmed Problem Male hypogonadism (41771372) Hypogonadism male (E29.1) Active confirmed Problem Benign prostatic hypertrophy with outflow obstruction (219192926) BPH loc w urin obs/LUTS (N40.1) Active confirmed Vital Signs Heart Rate 75 /min 08/23/2024 Height-cm 172.72 cm 08/23/2024 Blood pressure diastolic 72 mm Hg 08/23/2024 Weight-kg 93.89 kg 08/23/2024 Height 68 in 08/23/2024 Blood pressure systolic 110 mm Hg 08/23/2024 Weight 207 lbs 08/23/2024 BMI 31.47 kg/m2 08/23/2024 Encounters Encounter Location Date Provider Diagnosis [facility] [address] [place] [address] 04/20/2024 Delon Saucedovickijerry Hypogonadism male E29.1 ; Elevated PSA R97.20 ; BPH (benign prostatic hyperplasia) N40.0 ; Hormone replacement therapy Z79.890 ; High risk medication use Z79.899 and Exercise counseling Z71.82 [facility] [employer] [address] [place] [address] 08/23/2024 Delondanae Rocheil Hypogonadism male E29.1 ; BPH (benign prostatic hyperplasia) N40.0 ; Elevated PSA R97.20 ; Hormone replacement therapy Z79.890 ; High risk medication use Z79.899 and Exercise counseling Z71.82 [facility] [address] [place] [address] 04/20/2024 Delon Byrne [facility] [address] [place] [address] 04/24/2024 DELON NIETO [facility] [address] [place] [address] 05/15/2024 Delon Pevril Hypogonadism male E29.1 [facility] [address] [place] [address] 05/25/2024 DELON EVERETTKER [facility] [address] [place] [address] 06/25/2024 DELON NIETO [facility] [address] [place] [address] 07/02/2024 DELON NIETO [facility] [address] [place] [address] 07/23/2024 SILVERIO MANN [facility] [address] [place] [address] 07/25/2024 DELON NIETO [facility] [address] [place] [address] 07/25/2024 Delondanae Rocheil Hypogonadism in male E29.1 and Elevated PSA R97.20 Assessments Encounter Date Diagnosis (ICD Code) Assessment Notes Treatment Notes Treatment Clinical Notes Section Notes 04/20/2024 Hypogonadism male (ICD-10 - E29.1) Pt has symptomatic hypogonadism and with negative biopsy with PSA elevation to 7 and now down to 4.45. PSA remains somewhat stable. He strongly desired to start TRT as he felt it was necessary for the quality of his life and has been previously started on Kyzatrex 200mg BID with good symptomatic response and continued normal safety labs and stable PSA. Recommend continuing current dose and reassess in 6m f/u with repeat lab. WIll refill tamsulosin that he essentially takes on a PRN basis if worsening LUTS. Will refill this today as well. For now, and through shared decision making we are in agreement with no further workup or intervention at this time with care plan, aside from what was mentioned. Vitals checked. History reviewed. Exam as mentioned above. Patient has no other voiced concerns or questions. Patient will call back or return care sooner if further issues/questions . All questions that were asked, were answered. Patient satisfied with plan. 05/15/2024 Hypogonadism male (ICD-10 - E29.1) 07/25/2024 Hypogonadism in male (ICD-10 - E29.1) 07/25/2024 Elevated PSA (ICD-10 - R97.20) 04/20/2024 Elevated PSA (ICD-10 - R97.20) Pt has symptomatic hypogonadism and with negative biopsy with PSA elevation to 7 and now down to 4.45. PSA remains somewhat stable. He strongly desired to start TRT as he felt it was necessary for the quality of his life and has been previously started on Kyzatrex 200mg BID with good symptomatic response and continued normal safety labs and stable PSA. Recommend continuing current dose and reassess in 6m f/u with repeat lab. WIll refill tamsulosin that he essentially takes on a PRN basis if worsening LUTS. Will refill this today as well. For now, and through shared decision making we are in agreement with no further workup or intervention at this time with care plan, aside from what was mentioned. Vitals checked. History reviewed. Exam as mentioned above. Patient has no other voiced concerns or questions. Patient will call back or return care sooner if further issues/questions . All questions that were asked, were answered. Patient satisfied with plan. 08/23/2024 BPH (benign prostatic hyperplasia) (ICD-10 - N40.0) Pt had symptomatic hypogonadism and with negative biopsy with PSA elevation to 7 and has since remained somewhat stable. He recently requested holding TRT. He continues to note no bothersome hypogonadal symptoms while off of kyzatrex. He would like to continue with monitoring LUTS and PSA. WIll refill tamsulosin that he essentially takes on a PRN basis if worsening LUTS. Will refill this today as well. Suggested on safely transitioning patient to return care in 1 year with new PSA, FR/PVR and new IPSS. For now, and through shared decision making we are in agreement with no further workup or intervention at this time with care plan, aside from what was mentioned. Patient has no other voiced concerns or questions. Patient satisfied with plan. 08/23/2024 Hypogonadism male (ICD-10 - E29.1) Pt had symptomatic hypogonadism and with negative biopsy with PSA elevation to 7 and has since remained somewhat stable. He recently requested holding TRT. He continues to note no bothersome hypogonadal symptoms while off of kyzatrex. He would like to continue with monitoring LUTS and PSA. WIll refill tamsulosin that he essentially takes on a PRN basis if worsening LUTS. Will refill this today as well. Suggested on safely transitioning patient to return care in 1 year with new PSA, FR/PVR and new IPSS. For now, and through shared decision making we are in agreement with no further workup or intervention at this time with care plan, aside from what was mentioned. Patient has no other voiced concerns or questions. Patient satisfied with plan. 08/23/2024 Elevated PSA (ICD-10 - R97.20) Pt had symptomatic hypogonadism and with negative biopsy with PSA elevation to 7 and has since remained somewhat stable. He recently requested holding TRT. He continues to note no bothersome hypogonadal symptoms while off of kyzatrex. He would like to continue with monitoring LUTS and PSA. WIll refill tamsulosin that he essentially takes on a PRN basis if worsening LUTS. Will refill this today as well. Suggested on safely transitioning patient to return care in 1 year with new PSA, FR/PVR and new IPSS. For now, and through shared decision making we are in agreement with no further workup or intervention at this time with care plan, aside from what was mentioned. Patient has no other voiced concerns or questions. Patient satisfied with plan. 04/20/2024 BPH (benign prostatic hyperplasia) (ICD-10 - N40.0) Pt has symptomatic hypogonadism and with negative biopsy with PSA elevation to 7 and now down to 4.45. PSA remains somewhat stable. He strongly desired to start TRT as he felt it was necessary for the quality of his life and has been previously started on Kyzatrex 200mg BID with good symptomatic response and continued normal safety labs and stable PSA. Recommend continuing current dose and reassess in 6m f/u with repeat lab. WIll refill tamsulosin that he essentially takes on a PRN basis if worsening LUTS. Will refill this today as well. For now, and through shared decision making we are in agreement with no further workup or intervention at this time with care plan, aside from what was mentioned. Vitals checked. History reviewed. Exam as mentioned above. Patient has no other voiced concerns or questions. Patient will call back or return care sooner if further issues/questions . All questions that were asked, were answered. Patient satisfied with plan. 04/20/2024 Hormone replacement therapy (ICD-10 - Z79.890) Pt has symptomatic hypogonadism and with negative biopsy with PSA elevation to 7 and now down to 4.45. PSA remains somewhat stable. He strongly desired to start TRT as he felt it was necessary for the quality of his life and has been previously started on Kyzatrex 200mg BID with good symptomatic response and continued normal safety labs and stable PSA. Recommend continuing current dose and reassess in 6m f/u with repeat lab. WIll refill tamsulosin that he essentially takes on a PRN basis if worsening LUTS. Will refill this today as well. For now, and through shared decision making we are in agreement with no further workup or intervention at this time with care plan, aside from what was mentioned. Vitals checked. History reviewed. Exam as mentioned above. Patient has no other voiced concerns or questions. Patient will call back or return care sooner if further issues/questions . All questions that were asked, were answered. Patient satisfied with plan. 08/23/2024 Hormone replacement therapy (ICD-10 - Z79.890) Pt had symptomatic hypogonadism and with negative biopsy with PSA elevation to 7 and has since remained somewhat stable. He recently requested holding TRT. He continues to note no bothersome hypogonadal symptoms while off of kyzatrex. He would like to continue with monitoring LUTS and PSA. WIll refill tamsulosin that he essentially takes on a PRN basis if worsening LUTS. Will refill this today as well. Suggested on safely transitioning patient to return care in 1 year with new PSA, FR/PVR and new IPSS. For now, and through shared decision making we are in agreement with no further workup or intervention at this time with care plan, aside from what was mentioned. Patient has no other voiced concerns or questions. Patient satisfied with plan. 08/23/2024 High risk medication use (ICD-10 - Z79.899) Pt had symptomatic hypogonadism and with negative biopsy with PSA elevation to 7 and has since remained somewhat stable. He recently requested holding TRT. He continues to note no bothersome hypogonadal symptoms while off of kyzatrex. He would like to continue with monitoring LUTS and PSA. WIll refill tamsulosin that he essentially takes on a PRN basis if worsening LUTS. Will refill this today as well. Suggested on safely transitioning patient to return care in 1 year with new PSA, FR/PVR and new IPSS. For now, and through shared decision making we are in agreement with no further workup or intervention at this time with care plan, aside from what was mentioned. Patient has no other voiced concerns or questions. Patient satisfied with plan. 04/20/2024 High risk medication use (ICD-10 - Z79.899) Pt has symptomatic hypogonadism and with negative biopsy with PSA elevation to 7 and now down to 4.45. PSA remains somewhat stable. He strongly desired to start TRT as he felt it was necessary for the quality of his life and has been previously started on Kyzatrex 200mg BID with good symptomatic response and continued normal safety labs and stable PSA. Recommend continuing current dose and reassess in 6m f/u with repeat lab. WIll refill tamsulosin that he essentially takes on a PRN basis if worsening LUTS. Will refill this today as well. For now, and through shared decision making we are in agreement with no further workup or intervention at this time with care plan, aside from what was mentioned. Vitals checked. History reviewed. Exam as mentioned above. Patient has no other voiced concerns or questions. Patient will call back or return care sooner if further issues/questions . All questions that were asked, were answered. Patient satisfied with plan. 04/20/2024 Exercise counseling (ICD-10 - Z71.82) Pt has symptomatic hypogonadism and with negative biopsy with PSA elevation to 7 and now down to 4.45. PSA remains somewhat stable. He strongly desired to start TRT as he felt it was necessary for the quality of his life and has been previously started on Kyzatrex 200mg BID with good symptomatic response and continued normal safety labs and stable PSA. Recommend continuing current dose and reassess in 6m f/u with repeat lab. WIll refill tamsulosin that he essentially takes on a PRN basis if worsening LUTS. Will refill this today as well. For now, and through shared decision making we are in agreement with no further workup or intervention at this time with care plan, aside from what was mentioned. Vitals checked. History reviewed. Exam as mentioned above. Patient has no other voiced concerns or questions. Patient will call back or return care sooner if further issues/questions . All questions that were asked, were answered. Patient satisfied with plan. 08/23/2024 Exercise counseling (ICD-10 - Z71.82) Pt had symptomatic hypogonadism and with negative biopsy with PSA elevation to 7 and has since remained somewhat stable. He recently requested holding TRT. He continues to note no bothersome hypogonadal symptoms while off of kyzatrex. He would like to continue with monitoring LUTS and PSA. WIll refill tamsulosin that he essentially takes on a PRN basis if worsening LUTS. Will refill this today as well. Suggested on safely transitioning patient to return care in 1 year with new PSA, FR/PVR and new IPSS. For now, and through shared decision making we are in agreement with no further workup or intervention at this time with care plan, aside from what was mentioned. Patient has no other voiced concerns or questions. Patient satisfied with plan. Plan Of Treatment Pending Test Test Name Order Date BUN [id number] 07/20/2023 MRI : Pelvis with and without Contrast 7 219607/20/2023 CREATININE (375) 07/20/2023 CBC (H/H, RBC, INDICES, WBC, PLT) (1759) 12/14/2023 ESTRADIOL (4021) 12/14/2023 PSA, TOTAL (5363) 12/14/2023 Estradiol Level 04/20/2024 Hepatic Function Panel 04/20/2024 Testosterone Total 04/20/2024 Testosterone Total 07/25/2024 PSA-Diagnostic 04/20/2024 PSA-Diagnostic 08/23/2024 PSA-Diagnostic 07/25/2024 Next Appt Details Provider Name:Delon Chavez, 08/29/2025 01:00:00 PM, [address] [place], [address], Insurance Providers Payer Name Payer Address Payer Phone Subscriber Number Group Number Insured Name Patient Relationship to Insured Coverage Start Date Coverage End Date [place] [address] [facility] UDAY RODRIGUEZ [id number] Woodrow Hunter Self - patient is the insured [place] [employer] [place] [address] [employer] [place], [place] [id number] Woodrow Hunter Self - patient is the insured Medical (General) History Medical History History ICD Code Hypertension back trouble HX of chicken pox Surgical History Surgery Date(Month/Year) knee surgery vasectomy
--- NOTE | 2025-04-16 10:53 | W.ED.ALLEREA ---
HPI - Allergic Reaction General: Chief complaint: Allergic Reaction Stated complaint: allergic reaction, redness all over, dizzy, nausea Time Seen by Provider: 04/16/25 10:46 History of Present Illness: HPI narrative: 65-year-old man who presents emergency room with concern for an allergic reaction. He had had a protein shake that had Caramet pain relief niacin, beets and berries. Also pantoprazole. He is very flushed and itchy. Red all over. This appears to be a reaction to niacin. He has not taken niacin in the past. No food allergies. No shortness of breath. No chest pain. No altered mental status. He had some mild nausea but no vomiting Related Data Home Medications ?Medication ?Instructions ?Recorded ?Confirmed tamsulosin 0.4 mg capsule 0.4 mg PO DAILY PRN 03/11/21 04/05/22 lisinopril 10 mg tablet 20 mg PO DAILY 04/05/22 04/05/22 rosuvastatin 20 mg tablet 10 mg PO DAILY 04/05/22 04/05/22 Allergies Allergy/AdvReac Type Severity Reaction Status Date / Time amlodipine AdvReac Intermediate Sluggish Uncoded 04/16/25 10:29 Review of Systems Narrative: Constitutional symptoms: Negative except as documented in HPI. Skin symptoms: Negative except as documented in HPI. Eye symptoms: Negative except as documented in HPI. ENMT symptoms: Negative except as documented in HPI. Respiratory symptoms: Negative except as documented in HPI. Cardiovascular symptoms: Negative except as documented in HPI. Gastrointestinal symptoms: Negative except as documented in HPI. Genitourinary symptoms: Negative except as documented in HPI. Musculoskeletal symptoms: Negative except as documented in HPI. Neurologic symptoms: Negative except as documented in HPI. Psychiatric symptoms: Negative except as documented in HPI. Endocrine symptoms: Negative except as documented in HPI. PFSH ED PFSH: Medical History (Updated 04/16/25 @ 10:52 by Janet Muhammad MD) Lower urinary tract symptoms (LUTS) Elevated PSA Surgical History Hx of arthroscopy of right knee Family History Mother , AT AGE 64 Heart disease CAD (coronary artery disease) Father Healthy adult CAD (coronary artery disease) Lung disease Grandmother Cancer Diabetes Denies family history of Clotting disorder Dementia Chronic kidney disease (CKD) Suicide Anesthesia complication Bleeding disorder Stroke Social History Smoking and tobacco/nicotine status: never used tobacco/nicotine Alcohol intake: current Alcohol intake frequency: few times a month Substance/Drug Use: never Adopted: No Caregiver/support person: No Lives independently: No Household members: spouse Marital status: Current occupational status: employed Current gender identity: Male Physical Exam Narrative: EXAM NARRATIVE: General: Alert, no acute distress. Skin: Warm, dry. Diffuse erythema. No swelling. No edema. Head: Normocephalic, atraumatic. Neck: Supple, trachea midline. Eye: Extraocular movements are intact. Ears, nose, mouth and throat: mucosa moist. Cardiovascular: Regular, Normal peripheral perfusion. Respiratory: Lungs are clear to auscultation, respirations are non-labored, breath sounds are equal, Symmetrical chest wall expansion. Gastrointestinal: Soft, Nontender, Non distended Musculoskeletal: Normal ROM, no deformity. Neurological: Alert and oriented, No focal neurological deficit observed. Psychiatric: Cooperative, appropriate mood & affect. Course Vital Signs: Vital signs: Vital Signs Temperature 97.7 F 04/16/25 10:21 Pulse Rate 70 04/16/25 10:21 Blood Pressure 150/82 04/16/25 10:21 Pulse Oximetry 97 04/16/25 10:21 Oxygen Delivery Me thod Room Air 04/16/25 10:21 MDM - Allergic Reaction Medical Decision Making Medical decision making: Differential diagnosis including but not limited to and based on the above HPI, review of systems and physical exam: In a patient with complaints of allergic reaction have concern for anaphylaxis, medication reactions and viral reactions. Orders placed to evaluate differential diagnosis based on the above differential, HPI and physical exam. This seems to be a pretty clear-cut case of niacin adverse reaction. Assessment and plan: Niacin reaction ?Prednisone and Benadryl in the emergency room - Discharged home - Discussed plan with patient. Answered any questions. - Evaluation and treatment of this problem were appropriate in the emergency setting. No radiology studies performed this visit Discharge Plan Discharge Patient Disposition: Home Clinical Impression: Adverse reaction to niacin Condition: Stable Prescriptions: No Action rosuvastatin 20 mg tablet 10 mg PO DAILY tamsulosin 0.4 mg capsule 0.4 mg PO DAILY PRN lisinopril 10 mg tablet 20 mg PO DAILY Discharge Orders: Discharge ED (Routine); Ordered 04/16/25 Ordered By: Janet Muhammad Referrals: Scott Hanna MD [Primary Care Provider, Internal Medicine] Discharge Diet: Usual diet Discharge Activity: Increase activity as tolerated Patient Instructions: Food Allergy (ED), Opioid Safety, Pain Management, Patient Portal & Jacinto Instructions Activity Restrictions/Additional Instructions: Thank you for choosing [facility] for your healthcare needs today. You have been screened and evaluated and felt safe for discharge. Health conditions do change or evolve sometimes and as such it is important that you follow up with your Primary Doctor to be re checked, 3-5 days is a general good time frame for follow up. You are always welcome to return to the ED for re assessment if your symptoms are worsening or you have new concerns Print Language: [place] Rican Coding Level of Care Code ED Ship Captain for Marino Monroe
== END 2025-04-16 11:05 | disposition home or self-care (01) ==
PROVIDERS: Emergency Provider Emergency Medicine; PCP Internal Medicine
DX: L29.9 Pruritus, unspecified (principal); R23.2 Flushing; R42 Dizziness and giddiness; R11.0 Nausea; T46.7X5A Adverse effect of peripheral vasodilators, initial encounter; X58.XXXA Exposure to other specified factors, initial encounter
CPT/HCPCS: 99283; J7512; Q0163

== ENCOUNTER 2025-04-24 16:34 | Emergency (ER) | payer MEDICARE, OTHER, SELFPAY ==
--- OUTSIDE RECORDS SUMMARY | 2025-02-01 03:20 | XMS_ITS ---
Author Organization [facility] Address [address] [place] [address] Care Team Providers Care Valve Liner Rubber Name Role Phone Felipe Hanna Primary Care Provider [phone] REASON FOR VISIT pain, sinus Encounters Encounter Location Date Provider Diagnosis [facility] [address] [address] 02/01/2025 Felipe Hanna Plan Of Treatment Next Appt Details Provider Name:Felipe Hanna, 07/30/2025 01:00:00 PM, [address], [phone], Progress Notes * HERNANDO DENISE CDOB:1960 (65 yo M)Acc No.[id number]:02/01/2025 Progress Notes Patient: HERNANDO ADEN Nancy Provider: Nancy Hanna MD :1960 A ge:64 Y S ex:Male Date:02/01/2025 Address:[address] [place], [place] [phone] Subjective: * Chief Complaints: * P ain, [...] Electronic signature of Roselia Hanna MD on 04/24/2025 at 04:39 PM CDT Sign off status: Pending * Provider: Nancy Hanna MD Date: 0 02/01/2025 Generated for Tomas pinto/Patricio/Isabelleitting on: 04:39 PM CDT
--- OUTSIDE RECORDS SUMMARY | 2025-04-24 16:39 | XMS_ITS | Clinical Summary ---
Author Organization [facility] Address [address] [place] [address] Care Team Providers Care Linter Drier Operator Name Role Phone Unavailable Primary Care Provider [...] 1-dose 75+ series) 2034 Insurance MEDICA BALANCE [facility] EXCHANGE [id number] [address] [id number]
--- OUTSIDE RECORDS SUMMARY | 2025-04-24 16:39 | XMS_ITS | Patient Health Record ---
Author Organization [facility] Address [address] [place] [address] Care Team Providers Care Economic Specialist Name Role Phone Felipe Hanna Primary Care Provider Allergies Allergen (clinical drug ingredient) Drug/Non Drug Allergy documented on EMR Reaction Allergy Type Onset Date Status amlodipine Amlodipine sluggish Drug Allergy Activ e Results Component Value Reference Range Notes US Scrotum/Testicle-[id number] Reviewed date:03/21/2025 04:42:28 PM Interpretation: Performing Lab: Notes/Report: [id number]&org=iSite Schedule Confirmation Reviewed date:02/21/2025 09:52:00 AM Interpretation: Performing Lab: Notes/Report: CT Sinus w/o Contrast Schedule Confirmation Reviewed date:02/21/2025 09:52:01 AM Interpretation: Performing Lab: Notes/Report: US Scrotum/Testicle EGD w BX-[id number] Reviewed date:07/10/2024 10:13:50 AM Interpretation: Performing Lab: Notes/Report: US Scrotum/Testicle-02568 Reviewed date:03/21/2025 08:24:29 AM Interpretation: Performing Lab: Notes/Report: See Below For Report US Scrotum/Testicle Read See Below For Report CT Sinus w/o Contrast-07572 Reviewed date:2025 11:24:56 AM Interpretation: Performing Lab: Notes/Report: See Below For Report CT Sinus w/o Contrast Read See Below For Report CT Sinus w/o Contrast-41654 Reviewed date:03/21/2025 08:24:19 AM Interpretation: Performing Lab: Notes/Report: [id number]=iSite EGD, Upper GI Diagnostic-432 35 Reviewed date:07/10/2024 10:07:37 AM Interpretation: Performing Lab: Notes/Report: Reason For Referral Reason Possible mucus reten tion cyst Diagnosis 1 Chronic sinus compla ints (R09.89) Referral Organization [facility] Referring Provider First Name Aroldo gamez Referring Provider Last Name Hanna Referring Provider Speciality Internal M edicine Referred Provider [facility] Referred Provider Specialty Ear, nose an d throat surgeon General Notes Sivan Benjamin 11:39:29 AM CDT > Faxed [facility] [phone], Sivan Benjamin 03/08/2025 11:25:48 AM CDT > [...] Control (Standard) Tobacco use: Nonsmoker Section Notes: Dep -06/05/24 Tob - 06/05/24 06/05/24 Dep -06/05/24 Tob - 06/05/24 CIME Dep/Tob 01/28/25 Dep -06/05/24 Tob - 06/05/24 CIME Dep/Tob 01/28/25 Problems Problem Type SNOMED Code ICD Code Onset Dates Problem Status W/U Status Risk Notes Problem Chronic sinusitis (disorder) (78113652) Chronic sinus complaints (R09.89) Active confirmed Problem Swelling of testicle (finding) (715097909) Testicular swelling (N50.89) Active confirmed Problem Gastroduodenitis (731453117) Gastritis without bleeding, unspecified chronicity, unspecified gastritis type (K29.70) Active confirmed Problem Gastroesophageal reflux disease with esophagitis (disorder) (949372364) Gastro-esophag eal reflux disease with esophagitis, without bleeding (K21.00) Active confirmed Problem Heartburn (02203182) Chronic heartburn (R12) Active confirmed Vital Signs Heart Rate 67 /min 02/20/2025 Temperature 98.4 degrees Fahrenheit 02/20/2025 Blood pressure diastolic 82 mm Hg 02/20/2025 Oximetry 95 % 02/20/2025 Height-cm 175.26 cm 02/20/2025 Weight-kg 98.43 kg 02/20/2025 Height 69 in 02/20/2025 Blood pressure systolic 139 mm Hg 02/20/2025 Weight 217 lbs 02/20/2025 BMI 32.04 kg/m2 02/20/2025 Encounters Encounter Location Date Provider Diagnosis [facility] [address] [address] 06/05/2024 Felipe Hanna Chronic heartburn R12 and Depression screen Z13.31 [facility] [address] [place] [address] 06/29/2024 Felipe Hanna Abdominal pain, unspecified abdominal location R10.9 ; Gastritis without bleeding, unspecified chronicity, unspecified gastritis type K29.70 ; Gastro-esophageal reflux disease with esophagitis, without bleeding K21.00 and Chronic heartburn R12 [facility] [address] [place] [address] 07/30/2024 Felipe Hanna Chronic heartburn R12 and Gastritis without bleeding, unspecified chronicity, unspecified gastritis type K29.70 [facility] [address] [place] [address] 01/28/2025 Felipe Hanna Gastritis without bleeding, unspecified chronicity, unspecified gastritis type K29.70 ; Chronic heartburn R12 and Depression screen Z13.31 [facility] [address] [place] [address] 02/20/2025 Felipe Hanna Chronic heartburn R12 ; Chronic sinus complaints R09.89 ; Testicular swelling N50.89 ; Gastritis without bleeding, unspecified chronicity, unspecified gastritis type K29.70 and Gastro-esophageal reflux disease with esophagitis, without bleeding K21.00 [facility] [address] [place] [address] 08/17/2024 Felipe Hanna [facility] [address] [place] [address] 01/28/2025 Felipe Hanna [facility] [address] [place] [address] 2025 Felipe Hanna Chronic sinus complaints R09.89 Assessments Encounter Date Diagnosis (ICD Code) Assessment Notes Treatment Notes Treatment Clinical Notes Section Notes 01/28/2025 Gastritis without bleeding, unspecified chronicity, unspecified gastritis type (ICD-10 - K29.70) Take meds as directed. Notify if any worsening, new symptoms as directed or any increase. Diet as directed as tolerated. Avoid known triggers. Increase fluids as directed. 01/28/2025 Chronic heartburn (ICD-10 - R12) 2025 Chronic sinus complaints (ICD-10 - R09.89) 07/30/2024 Chronic heartburn (ICD-10 - R12) 06/29/2024 Abdominal pain, unspecified abdominal location (ICD-10 - R10.9) 06/29/2024 Gastritis without bleeding, unspecified chronicity, unspecified gastritis type (ICD-10 - K29.70) 02/20/2025 Chronic sinus complaints (ICD-10 - R09.89) r 06/05/2024 Chronic heartburn (ICD-10 - R12) --- to be completed at [facility] -x--to be completed at [facility] ---to be completed at [facility] ---to be completed at [facility] 02/20/2025 Chronic heartburn (ICD-10 - R12) r 06/05/2024 Depression screen (ICD-10 - Z13.31) 01/28/2025 Depression screen (ICD-10 - Z13.31) 02/20/2025 Testicular swelling (ICD-10 - N50.89) r 06/29/2024 Gastro-esophagea l reflux disease with esophagitis, without bleeding (ICD-10 - K21.00) 07/30/2024 Gastritis without bleeding, unspecified chronicity, unspecified gastritis type (ICD-10 - K29.70) discussed with pt results of EGD. All questions were answered and understood by pt 06/29/2024 Chronic heartburn (ICD-10 - R12) 02/20/2025 Gastritis without bleeding, unspecified chronicity, unspecified gastritis type (ICD-10 - K29.70) r 02/20/2025 Gastro-esophagea l reflux disease with esophagitis, without bleeding (ICD-10 - K21.00) r 06/29/2024 Other see scanned document from [facility] in patients documents. Plan Of Treatment Next Appt Details Provider Name:Felipe Hanna, 07/30/2025 01:00:00 PM, [address], [address], Insurance Providers Payer Name Payer Address Payer Phone Subscriber Number Group Number Insured Name Patient Relationship to Insured Coverage Start Date Coverage End Date [place] [address] [address] [place] [address] [id number] HERNANDO DENISE Self - patient is the insured [place] [employer] [place] [address] [place] [phone] [id number] HERNANDO DENISE Self - patient is the insured Medical (General) History Medical History History ICD Code elevated PSA lower urinary tract symptoms Umbilical hernia allergies Surgical History Surgery Date(Month/Year) Hx of arthroscopy of right knee
--- OUTSIDE RECORDS SUMMARY | 2025-04-24 16:39 | XMS_ITS | Patient Health Record ---
Author Organization [facility], [facility] Address [address] [place] [address] Care Team Providers Care Aircraft Machinist Helper Name Role Phone Julianonel GODINEZYesenia Barr Primary Care Provider UnavailSILVERIO Up Unavailable [phone] DELON [place] Unavailable [phone] Delon Byrne Unavailable [phone] Allergies No Known Allergies Results Component Value Reference Range Notes Testosterone Total Reviewed date:05/18/2024 08:03:54 AM Interpretation: Performing Lab: Notes/Report: Reason For [...] Status Risk Notes Problem Benign prostatic hyperplasia (259226661) BPH (benign prostatic hyperplasia) (N40.0) Active confirmed Problem Male hypogonadism (50611760) Hypogonadism male (E29.1) Active confirmed Problem Benign prostatic hypertrophy with outflow obstruction (615737889) BPH loc w urin obs/LUTS (N40.1) Active confirmed Vital Signs Heart Rate 75 /min 08/23/2024 Height-cm 172.72 cm 08/23/2024 Blood pressure diastolic 72 mm Hg 08/23/2024 Weight-kg 93.89 kg 08/23/2024 Height 68 in 08/23/2024 Blood pressure systolic 110 mm Hg 08/23/2024 Weight 207 lbs 08/23/2024 BMI 31.47 kg/m2 08/23/2024 Encounters Encounter Location Date Provider Diagnosis [facility], [email or web address] [address] [place] [address] 08/23/2024 Delon Byrne Hypogonadism male E29.1 ; BPH (benign prostatic hyperplasia) N40.0 ; Elevated PSA R97.20 ; Hormone replacement therapy Z79.890 ; High risk medication use Z79.899 and Exercise counseling Z71.82 [email or web address] [address] [place] [address] 04/24/2024 DELON [place] [facility], [facility] [address] [place] [address] 05/15/2024 Delon Byrne Hypogonadism male E29.1 [facility] [address] [place] [address] 05/25/2024 DELON [place] [facility] [address] [place] [address] 06/25/2024 DELON EVERETTKER [facility] [address] [place] [address] 07/02/2024 DELON EVERETTKER [facility] [address] [place] [address] 07/23/2024 SILVERIO MACKENZIE [facility] [address] [place] [address] 07/25/2024 DELON EVERETTKER [facility] [address] [place] [address] 07/25/2024 Delon Rocheil Hypogonadism in male E29.1 and Elevated PSA R97.20 Assessments Encounter Date Diagnosis (ICD Code) Assessment Notes Treatment Notes Treatment Clinical Notes Section Notes 05/15/2024 Hypogonadism male (ICD-10 - E29.1) 07/25/2024 Hypogonadism in male (ICD-10 - E29.1) 07/25/2024 Elevated PSA (ICD-10 - R97.20) 08/23/2024 BPH (benign prostatic hyperplasia) (ICD-10 - [...] or questions. Patient satisfied with plan. 08/23/2024 Hormone replacement [...] or questions. Patient satisfied with plan. 08/23/2024 Exercise counseling [...] Pending Test Test Name Order Date BUN [id number] 07/20/2023 MRI : Pelvis with and without Contrast 219607/20/2023 CREATININE (375) 07/20/2023 CBC (H/H, RBC, INDICES, WBC, PLT) (1759) 12/14/2023 ESTRADIOL (4021) 12/14/2023 PSA, TOTAL (5363) 12/14/2023 Estradiol Level 04/20/2024 Hepatic Function Panel 04/20/2024 Testosterone Total 04/20/2024 Testosterone Total 07/25/2024 PSA-Diagnostic 04/20/2024 PSA-Diagnostic 07/25/2024 PSA-Diagnostic 08/23/2024 Next Appt Details Provider Name:Delon Byrne, 08/29/2025 01:00:00 PM, [address] [place], [address], Insurance Providers Payer Name Payer Address Payer Phone Subscriber Number Group Number Insured Name Patient Relationship to Insured Coverage Start Date Coverage End Date [place] Medicare [address] MADELEINE UDAY RODRIGUEZ [id number] Woodrow Hunter Self - patient is the insured [place] [employer] [place] [address] [place] [id number] [phone] [id number] Woodrow Hunter Self - patient is the insured Medical (General) History Medical History History ICD Code Hypertension back trouble HX of chicken pox Surgical History Surgery Date(Month/Year) knee surgery vasectomy
--- OUTSIDE RECORDS SUMMARY | 2025-04-24 16:39 | XMS_ITS | Data Portability ---
Author Organization [facility] Address [address] [address] Care Team Providers Care Police Stenographer Name Role Phone CLAUDIA HILL Primary Care Provider Assessment No assessment recorded. Plan of Treatment Reminders Order Date Submit Date Provider Last Modified By Organization Details Last Modified Time Details Appointments None recorded. Lab PSA, serum or plasma - ALL LABS ORDERED BY [facility]/ WILL FAX YF 2024 025 Monitor [facility], [address] [place], [address], 5 05:28:30 testoster one, total, serum 2024 025 Monitor [facility], [address] [place], [address], 5 05:28:29 testoster one, total, serum - ordered by [facility]/ will fax YF 2023 024 Monitor [facility], [address] [facility] [address] [place], [address], 4 11:35:46 CBC 2023 024 [facility], [address] [facility], [address], [place], [address], 4 13:42:37 hepatic function panel, serum 10/2023 TILLAR [facility], [address], [address], [place], [address], 14:07:49 estradiol , serum 2023 [employer] [facility], [address], [place], [address], 18:07:04 PSA, serum or plasma 2023 [facility]AM[facility] [employer], [address] [facility], [place], [address], 18:07:06 testoster one, free + total, serum 2023 TILLAR [employer], [address] [place] [address] [address], [place], [address], 18:07:02 testoster one, total, serum - ordered by [facility]/ will fax yf 2023 [employer] [facility], [address] [facility] [address], [address], [place], [address], 12:41:05 Referral None recorded. Procedures None recorded. Surgeries None recorded. Imaging None recorded. Medication Orders Medrol (Yvon) 4 mg tablets in a dose pack 2023 TILL[id number], [address], [place], [place], [id number], 16:06:02 Patient TargetsNo targets recorded. Patient InstructionsNo instructions recorded. Reason for Referral None Reported. Results Created Date Observation Date Name Description Value Unit Range Abnormal Flag Note LastModifiedBy Organization Detail LastModifiedTime 01/02/20 24 01/02/2024 CBC WBC 6.3 x10 4.5-10 .5 Not Available [facility] [address] [facility] [address], [place], [address], 01/02/2024 12:55:57 01/02/2001/02/2024 CBC RBC 5.12 x10 4.30-5 .90 Not Available [facility] [address] [facility] [address] [facility] [address], [place], [address], 01/02/2024 12:55:57 01/02/20 24 01/02/2024 CBC HGB 16.1 g/dL 13.5-1 8.0 Not Available [facility] [address] [facility] [address] [address], [place], [address], 01/02/2024 12:55:57 01/02/2001/02/2024 CBC HCT 47.3 % 35.0-6 0.0 Not Available [facility] [address] [facility] [address], [place], [address], 01/02/2024 12:55:57 01/02/20 24 01/02/2024 CBC MCV 92.4 fL 80.0-9 9.9 Not Available [facility] [address] [facility] [address] [address], [place], [address], 01/02/2024 12:55:57 01/02/2001/02/2024 CBC MCH 31.5 pg 27.0-3 2.0 Not Available [facility] [address] [facility] [address] [address], [place], [address], 01/02/2024 12:55:57 01/02/20 24 01/02/2024 CBC MCHC 34.1 g/dL 32.0-3 6.0 Not Available [facility] [address] [facility], [place], [address], 01/02/2024 12:55:57 01/02/20 24 01/02/2024 CBC RDW 13.2 % 11.5-1 4.5 Not Available [facility] [address] [address], [place], [address], 01/02/2024 12:55:57 01/02/20 24 01/02/2024 CBC plt 286.8 x10 150.0- 451.0 Not Available [facility] [address] [address], [place], [address], 01/02/2024 12:55:57 01/02/20 24 01/02/2024 CBC lymphocytes % 33.2 % 20.0-5 0.0 Not Available [facility] [address] [address], [place], [address], 01/02/2024 12:55:57 01/02/20 24 01/02/2024 CBC granulcytes % 56.7 % 30.0-7 0.0 Not Available [facility] [address] [address], [place], [address], 01/02/2024 12:55:57 01/02/20 24 01/02/2024 CBC monocytes % 7.5 % 2.0-16 .0 Not Available [facility] [address] [address], [place], [address], 01/02/2024 12:55:57 01/02/20 24 01/02/2024 CBC granulcytes# 3.6 x10 Not Sapphire il[facility] [address] [address], [place], [address], 01/02/2024 12:55:57 01/02/2001/02/2024 CBC lymphocytes # 2.1 x10 Not Available [facility] [address] [address], [place], [address], 01/02/2024 12:55:57 01/02/2001/02/2024 CBC monocytes # 0.5 x10 Not Avai lable [facility] [address], [place], [address], 01/02/2024 12:55:57 01/02/2001/03/2024 ESTRA DIOL estradiol 33 pg/mL < or = 39 normal Refer ence range estab lishe d on post- puber damien patie nt popul ation . No pre-p ubert al refer ence range estab lishe d using this assay . For any patie nts for whom low Estra diol level s are antic ipate d (e.g. males , pre-p ubert al child kenyatta and hypog onada l/pos t-men opaus al femal es), the [facility] Rashad ls Insti tute Estra diol, Ultra sensi tive, LCMSM S assay is recom byron d (orde r code 54543 ). Pleanahi e note: patie nts being treat ed with the drug fulve stran t (Fasl odex( R)) have demon strat ed signi fican t inter feren ce in immun oassa y metho ds for estra diol measu remen t. The cross react ivity could lead to false ly eleva fredy estra diol test resul ts leadi ng to an inapp ropri ate clini janeth asses sment of estro gen statu s. [facility] order code 10501 -Estr adiol , Ultra sensi tive LC/MS /MS demon strat es negli gible cross react ivity with fulve stran t. Not Available [facility] [address], [place], [address], 01/03/2024 09:45:53 01/02/2001/03/2024 PSA, TOTAL PSA, total 5.11 NG/mL < or = 4.00 high The total PSA value from this assay esther bernardo is stand ardiz ed again st the WHO stand jaydon. The test resul t will be appro ximat tacho 20% lower when ap red to the equim olar- stand ardiz ed total PSA (Toscano man Coult er). Ap rison of seria l PSA resul ts shoul d be inter prete d with this fact in mind. This test was perfo rmed using the Sieme ns chemi lumin escen t metho d. Value s obtai bola from diffe rent assay metho ds canno t be used inter thompson eably . PSA level s, regar dless of value , shoul d not be inter prete d as absol ione evide nce of the prese nce or absen ce of disea se. Not Available [facility] [address] [place], [address], 01/03/2024 09:45:54 01/17/2001/18/2024 TESTO STERO NE, TOTAL , MALES (ADUL T), IA testosterone , total, males (adult), ia 685 NG/dL 250-82 7 normal Not Available [facility] [address] [place], [address], 01/18/2024 12:41:05 04/16/20 24 04/16/2024 CBC WBC 6.8 x10 4.5-10 .5 Not Available [facility] [address], [address], 04/16/2024 13:42:37 04/16/20 24 04/16/2024 CBC RBC 5.07 x10 4.30-5 .90 Not Available [facility] [address] [facility], [place], [address], 04/16/2024 13:42:37 04/16/20 24 04/16/2024 CBC HGB 18.0 g/dL 13.5-1 8.0 Not Available [facility] [address] [address], [place], [address], 04/16/2024 13:42:37 04/16/20 24 04/16/2024 CBC HCT 47.4 % 35.0-6 0.0 Not Available [facility] [address], [place], [address], 04/16/2024 13:42:37 04/16/2004/16/2024 CBC MCV 93.5 fL 80.0-9 9.9 Not Available [facility] [address] [facility] [address], [place], [address], 04/16/2024 13:42:37 04/16/2004/16/2024 CBC MCH 35.5 pg 27.0-3 2.0 high Not Available [facility] [address] [facility] [address], [place], [address], 04/16/2024 13:42:37 04/16/2004/16/2024 CBC MCHC 37.9 g/dL 32.0-3 6.0 high Not Available [facility] [address] [facility], [place], [address], 04/16/2024 13:42:37 04/16/2004/16/2024 CBC RDW 15.1 % 11.5-1 4.5 high Not Available [facility] [address] [facility] [address], [place], [address], 04/16/2024 13:42:37 04/16/2004/16/2024 CBC plt 203.5 x10 150.0- 451.0 Not Available [facility] [address] [facility] [address], [place], [address], 04/16/2024 13:42:37 04/16/2004/16/2024 CBC lymphocytes % 28.4 % 20.0-5 0.0 Not Available [facility] [address] [facility] [address], [place], [address], 04/16/2024 13:42:37 04/16/2004/16/2024 CBC granulcytes % 64.8 % 30.0-7 0.0 Not Available [facility] [address] [facility], [place], [address], 04/16/2024 13:42:37 04/16/20 24 04/16/2024 CBC monocytes % 5.1 % 2.0-16 .0 Not Available [facility] [address] [facility] [address], [place], [address], 04/16/2024 13:42:37 04/16/2004/16/2024 CBC granulcytes# 4.4 x10 Not Sapphire ilable [facility] [address] [address], [place], [address], 04/16/2024 13:42:37 04/16/2004/16/2024 CBC lymphocytes # 1.9 x10 Not Available [facility] [address] [address], [place], [address], 04/16/2024 13:42:37 04/16/2004/16/2024 CBC monocytes # 0.3 x10 Not Avai lable [facility] [address] [address], [place], [address], 04/16/2024 13:42:37 04/16/2004/16/2024 LIVER PANEL (MALE ) total protein 7.6 g/dL 6.0-8. 5 Not Available [facility] [address] [address], [place], [address], 04/16/2024 14:07:49 04/16/2004/16/2024 LIVER PANEL (MALE ) total bilirubin 0.8 mg/dL 0.2-1. 3 Not Available [facility] [address] [address], [place], [address], 04/16/2024 14:07:49 04/16/20 24 04/16/2024 LIVER PANEL (MALE ) conj. bilirubin (direct) 0.00 mg/dL 0.00-0 .40 Not Available [facility] [address] [facility], [place], [address], 04/16/2024 14:07:49 04/16/20 24 04/16/2024 LIVER PANEL (MALE ) albumin 4.3 g/dL 3.5-5. 5 Not Available [facility] [address] [facility], [place], [address], 04/16/2024 14:07:49 04/16/2004/16/2024 LIVER PANEL (MALE ) AST (SGOT) 31.0 U/L 0.0-46 .0 Not Available [address] [facility], [place], [address], 04/16/2024 14:07:49 04/16/20 24 04/16/2024 LIVER PANEL (MALE ) altv (SGPT) 25.0 U/L 13.0-6 9.0 normal Not Available [address] [facility], [place], [address], 04/16/2024 14:07:49 04/16/20 24 04/16/2024 LIVER PANEL (MALE ) ALP phos 76.0 U/L 30.0-1 40.0 normal Not Available [address] [facility], [place], [address], 04/16/2024 14:07:49 04/16/2004/19/2024 TESTO STERO NE, FREE, BIOAV AILAB LE AND TOTAL , MS albumin 4.4 g/dL 3.6-5. 1 Not Available [facility] [address], [place], [address], 04/19/2024 18:07:02 04/16/20 24 04/19/2024 TESTO STERO NE, FREE, BIOAV AILAB LE AND TOTAL , MS sex hormone binding globulin 17.1 nmol/ L 22-77 low Not Available [address], [address], 04/19/2024 18:07:02 04/16/20 24 04/19/2024 TESTO STERO NE, FREE, BIOAV AILAB LE AND TOTAL , MS testosterone , free 41.2 pg/mL 46.0-2 24.0 low Not Available [address], [address], 04/19/2024 18:07:02 04/16/20 24 04/19/2024 TESTO STERO NE, FREE, BIOAV AILAB LE AND TOTAL , MS testosterone ,bioavailabl e 82.8 NG/dL 110.0- 575.0 low Not Available [address], [address], 04/19/2024 18:07:02 04/16/20 24 04/19/2024 TESTO STERO NE, FREE, BIOAV AILAB LE AND TOTAL , MS testosterone , total, MS 206 NG/dL 250-11 00 low Men with clini jillian signi fican t hypog onada l sympt oms and testo stero ne value s repea tedly in the range of the 200-3 00 ng/dL or less, may benef it from testo stero ne treat ment after adequ ate risk and benef its couns eling . For addit ional infor dallas thomas e refer to https ://ed ucati on.qu nhungdi eSolars. com/f aq/FA T244 (This link is being provi ded for infor amy nal/e ducat ional purpo ses only. ) (Note ) This test was devel oped and its jessenia tical perfo rmanc e amilcar cteri stics have been deter mined by [employer]. It has not been clear ed or appro key by the FDA. This assay has been valid ated pursu ant to the CLIA regul ation s and is used for clini janeth purpo ses. MDF med fusio n [address] [facility] [address] [place] [address] [phone] Sedrick may Woodrow Thomas MD, PhD Not Available [facility] [address] [place], [address], 04/19/2024 18:07:02 04/16/20 24 04/19/2024 ESTRA DIOL estradiol 28 pg/mL < or = 39 normal Refer ence range estab lishe d on post- puber damien patie nt popul ation . No pre-p ubert al refer ence range estab lishe d using this assay . For any patie nts for whom low Estra diol level s are antic ipate d (e.g. males , pre-p ubert al child kenyatta and hypog onada l/pos t-men opaus al femal es), the [facility] Rashad ls Insti tute Estra diol, Ultra sensi tive, LCMSM S assay is recom byron d (orde r code 41231 ). Pleas e note: patie nts being treat ed with the drug fulve stran t (Fasl odex( R)) have demon strat ed signi fican t inter feren ce in immun oassa y metho ds for estra diol measu remen t. The cross react ivity could lead to false ly eleva fredy estra diol test resul ts leadi ng to an inapp ropri ate clini janeth asses sment of estro gen statu s. [facility] order code 95474 -Estr adiol , Ultra sensi tive LC/MS /MS demon strat es negli gible cross react ivity with fulve stran t. Not Available [facility] [address], [place], [address], 04/19/2024 18:07:04 04/16/20 24 04/19/2024 PSA, TOTAL PSA, total 5.40 NG/mL < or = 4.00 high The total PSA value from this assay syste m is stand ardiz ed again st the WHO stand jaydon. The test resul t will be appro ximat tacho 20% lower when ap red to the equim olar- stand ardiz ed total PSA (Toscano man Coult er). Ap rison of seria l PSA resul ts shoul d be inter prete d with this fact in mind. This test was perfo rmed using the Sieme ns chemi lumin escen t metho d. Value s obtai bola from diffe rent assay metho ds canno t be used inter thompson eably . PSA level s, regar dless of value , shoul d not be inter prete d as absol ione evide nce of the prese nce or absen ce of disea se. Your reque st to have a [employer] frederic copy faxed has been brigette gracia ed. Queue d to: [phone] Not Available [facility] [address] [address] [place], [address], 04/19/2024 18:07:05 05/16/20 24 05/17/2024 TESTO STERO NE, TOTAL , MALES (ADUL T), IA testosterone , total, males (adult), ia 361 NG/dL 250-82 7 normal Not Available [facility] [address] [address] [place], [address], 05/17/2024 11:35:46 08/15/19 25 08/16/2024 TESTO STERO NE, TOTAL , MALES (ADUL T), IA testosterone , total, males (adult), ia 311 NG/dL 250-82 7 normal Not Available [facility] [address] [address] [place], [address], 08/16/2024 05:28:29 08/15/19 25 08/16/2024 PSA, TOTAL PSA, total 5.85 NG/mL < or = 4.00 high The total PSA value from this assay syste m is stand ardiz ed again st the WHO stand jaydon. The test resul t will be appro ximat tacho 20% lower when ap red to the equim olar- stand ardiz ed total PSA (Toscano man Coult er). Ap rison of seria l PSA resul ts shoul d be inter prete d with this fact in mind. This test was perfo rmed using the Sieme ns chemi lumin escen t metho d. Value s obtai bola from diffe rent assay metho ds canno t be used inter thompson eably . PSA level s, regar dless of value , shoul d not be inter prete d as absol ione evide nce of the prese nce or absen ce of disea se. Not Available [facility] [address] [place], [address], 08/16/2024 05:28:30 Result Notes None recorded. Problems Name Problem SNOMED Code Status Onset Date Resolution Date Notes Provider Name and Address Organization Details Recorded Time Hyperlipidem ia 52073781 Active 2021 Hyperli pidemia ; 022 1:55PM by Diane Carias LPN, Office Visit; Promote d; acuity set as *; Not Available [employer] 3 03:11:04 Abscess 147476894 Active 2022 Santosh Hagen MD [address] [place] [address], [phone] , [facility] 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 3 10:38:21 Allergic contact dermatitis 843671969 Active 2023 Santosh Hagen MD [address] [place] [address], [phone] , [facility] 4 16:04:19 Problem Notes None recorded. Procedures Surgical History Date Name Laterality Status Provider Name and Address Organization Details Recorded Time Knee Surgery completed Lesley Jones [facility] 05/17/2024 15:52:15 Vasectomy completed MARC Dee [facility] 05/26/2023 11:58:05 Imaging Results None recorded. Procedure Notes None recorded. Medical Equipment None Reported. Allergies No known drug allergies Medications Name Sig Start Date Stop Date Status Note LastModified by Organization Details LastModified Time lisinopri l 20 mg tablet TAKE 1 TABLET BY MOUTH DAILY active Not Available Not Available No t Available ciproflox acin 500 mg tablet active Not Available Not Available No t Available sulfameth oxazole 800 mg-trimet hoprim 160 mg tablet TAKE 1 TABLET BY MOUTH EVERY 12 HOURS FOR 7 DAYS 05/26 completed Not Available Not Available Not Available triamcino lone acetonide 0.1 % topical cream APPLY THIN LAYER TOPICALL Y TO THE AFFECTED AREA TWICE DAILY 05/26 completed Not Available Not Available Not Available tamsulosi n 0.4 mg capsule TAKE 1 CAPSULE BY MOUTH DAILY active Not Available Not Available No t Available pantopraz ole 40 mg tablet,de layed release TAKE 1 TABLET BY MOUTH EVERY DAY active Not Available Not Available No t Available triamcino lone acetonide 0.1 % topical ointment APPLY A THIN LAYER TOPICALL Y TO LOWER LEG TWICE DAILY NEEDED active Not Available Not Available No t Available methylpre dnisolone 4 mg tablets in a dose pack FOLLOW PACKAGE DIRECTIO NS active Not Available Not Available No t Available amoxicill in 875 mg-potass ium clavulana te 125 mg tablet active Not Available Not Available Not Available rosuvasta tin 10 mg tablet daily 05/11 completed DOC DM/sd; 12173; Recorded 01/26/20 22 3:35PM by Deborah Da Silva (Authori zed through Baron Gale DO), Refill Request; Refill Quantity : 0; Not Available Not Available Not Available tamsulosi n active Not Available Not Available Not Available lisinopri l daily 05/11 completed 91755; Recorded 03/11/20 22 3:29PM by Marc Contreras CMT (Authori eleazar through HOLLI Estrella), Refill Request; Refill Quantity : 0; Not Available Not Available Not Available Kyzatrex 200 mg capsule TAKE 2 CAPSULES BY MOUTH TWICE A DAY WITH FOOD FOR 30 DAYS active Not Available Not Available No t Available Vitals Date Recorded Body height Body mass index (BMI) Body weight Oxygen saturation Oxygen saturation in Arterial blood by Pulse oximetry Heart rate Respiratory rate Body temperature Systolic And Diastolic Provider Name and Address Organization Details Last Updated DateTime 4 175.26 cm 32 kg/m2 96678.5 4 g 93 % 93 % 78 /min 18 /min 97.6 [degF] 126/74 mm[Hg] Lesley Pal [facility] 4 15:49:22 Social History None recorded. Functional Status Question Answer Note LastModified by Organizat ion Details LastModified Time Do you use any illicit or recreational drugs? No Information not available 05/26/2023 What is your level of alcohol consumption? Occasional [email or web address] Information not available 05/26/2023 Are you able to care for yourself independently? Yes [email or web address] Information not available 05/26/2023 Mental Status None recorded. Family History Relationship Description Onset Age of this Age Resolved Age Notes LastModified by Organization Details LastModified Time Father Myocardial infarction age 72 [email or web address] Not available 05/11 11:55:58 Mother Coronary arterioscler osis [email or web address] Not available 05/26 11:56:22 Mother Myocardial infarction First GA age 41/2nd GA age 44/3rd GA age 64 which caused her . [email or web address] Not available 05/26/2023 11:57:14 Medical History Condition Response Anxiety Disorder Y High Cholesterol Y Reflux/GERD Y Hypertension Y Immunizations Vaccine Type Date Status Note Provider Nam e and Address Organization Details Recorded Time COVID-19, mRNA, LNP-S, PF, 30 mcg/0.3 mL dose 1 completed HOLLI LEBRON [address] [place], [address], [facility] 05/26/2023 13:16:52 Influenza, split virus, trivalent, preservative 5 completed CLAUDIA HILL [facility] [address] [place], [address], [facility] 05/26/2023 13:16:52 MMR 9 completed CLAUDIA HILL [address], [address], [facility] 05/26/2023 13:16:52 COVID-19, mRNA, LNP-S, PF, 30 mcg/0.3 mL dose 1 completed RYAN LEBRON[address], [address], [facility] 05/26/2023 13:16:52 Tdap 9 completed RYAN LEBRON[address], [address], [facility] 05/26/2023 13:16:52 Past Encounters Encounter ID Performer Location Encounter Start Date Encounter Closed Date Diagnosis/Indication Diagnosis SNOMED-CT Code Diagnosis ICD10 Code Diagnosis IMO Codes Diagnosis Note [id number] Santosh Hagen MD [facility] ([facility]) [address] [place] [phone] 05/11/2023 10:18:47 05/11/2023 11:08:54 Abscess 150268739 L02.91 Patient likely has a small abscess. Laceration was performed and culture obtained. Patient's was started on antibiotic s. Care instructio ns given. 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 Patient reports that these lesions have been recurrent. Commend steroid cream twice daily until resolved. [id number] HOLLI LEBRON [facility] ([facility]) [address] [place] [address] 05/26/2023 11:19:24 05/26/2023 13:57:54 Adult health examination 800481912 Z00.00 Prostate s pecific antigen above reference range 878044189 R97.20 Recent lab at [facility] 6.5 Vitamin D deficiency 347 88797 E55.9 Recent lab 24. Currently on a prescripti on vitamin for replacemen t. [id number] HOLLI LEBRON [facility] ([facility]) [address] [place] [phone] 01/02/2024 11:50:49 01/03/2024 09:07:30 Male hypogonadism 55475259 E29.1 [id number] CLAUDIA HILL [facility] ([facility]) [address] [place], [place] [address] 01/17/2024 15:05:15 01/18/2024 09:25:07 Male hypogonadism 80941399 E29.1 [id number] CLAUDIA HILL [facility]) [address] [place] [phone] 04/16/2024 13:24:18 04/17/2024 10:02:30 Male hypogonadism 80571007 E29.1 [id number] CLAUDIA HILL [facility]) [address] [place] [address] [phone] 05/16/2024 11:10:19 05/17/2024 11:26:44 Male hypogonadism [id number] E29.1 [id number] Santosh Hagen MD [facility] ([facility]) [address] [place] [address] [phone] 05/17/2024 15:41:31 05/21/2024 13:00:48 Allergic contact dermatitis [id number] L23.9 The rash appears to be lingering contact dermatitis . Recommend starting a Medrol Dosepak and monitoring . If any other symptoms or rash does not resolve, then follow-up with PCP. [id number] CLAUDIA HILL PROGRAM STRATEGIST [facility] ([facility]) [address] [place] [address] [phone] 08/15/2024 12:22:01 08/16/2024 10:35:56 Prostate specific antigen above reference range [id number] R97.20 Recent lab at [facility] 6.5 Male hypogonadism [id number] E29.1 Health Concerns Section Related Observation LastModified by Organization Detai ls LastModified Time None Recorded Concern Status LastModified by Organization Details LastModified Time None Recorded Advance Directives Directive None Recorded Payers Insurance Date Sequence Insurance Name Policy Number Policy Corea Covered Member ID Corea Member ID Guarantor Name 05/16/2024 1 MEDICA - IFB (PPO) IFB Woodrow Hunter [id number] Woodrow Hunter 08/15/2024 [place] - [id number] (MEDICARE) Woodrow Hunter [id number] Woodrow Hunter 08/04/2024 2 [employer] INSURANCE 1-4 All (MEDICARE SUPPLEMENT) Woodrow Hunter [id number] Woodrow Hunter 05/16/2024 1 MEDICA - IFB (PPO) Woodrow Hunter [id number] Woodrow Hunter 08/15/2024 1 [place] Woodrow Hunter [id number] Woodrow Hunter 08/15/2024 2 [employer] [place] (MEDICARE SUPPLEMENT) Woodrow Hunter [id number] Woodrow Hunter Notes Date Note Type Note Provider Name and Address Organization Details Recorded Time 05/17/2024 text/html General Rash/Ski n LesionReported by PatientROS as noted in the HPI walk in patientpatient 's told him he has a rash on his back today,. Patient denies any new exposures. Patient denies any fevers or pruritus. Santosh Hagen MD [address] [place] [address], [phone], [facility] 05/20/2024 10:59:58
[2025-04-24 16:40] VITALS: BP 213/114; PULSE 99; TEMP 36.4; O2SAT 95
[2025-04-24 16:49] VITALS: BP 126/82; PULSE 82; RESP 16; TEMP 36.8; O2SAT 98
--- NOTE | 2025-04-24 18:08 | ED_ITS ---
HPI - Male Genitourinary General: Chief complaint: Urogenital-Male Stated complaint: Post Surgery 04/24/25 can't pee in pain Time Seen by Provider: 04/24/25 17:14 History of Present Illness: 65 year-old male with history of enlarge d prostate and longstanding urinary difficulties presents with acute urinary retention after a recent procedure under anesthesia earlier today [Unclear if nasal surgery; conflicting reports about surgery]. Patient reports burning with urination recently and concern for UTI. He intermittently takes Tamsulosin but not daily. Araujo catheter was placed prior to exam with immediate relief and ~1000 mL urine drained. Patient describes severe suprapubic pain prior to catheterization, worse than prior injuries; now improved. Denies current distress. Plan discussed for urinalysis to evaluate infection and to leave Araujo in place for several days, followed by urology follow-up for trial of void and discussion of surgical options. Related Data Home Medications ?Medication ?Instructions ?Recorded ?Confirmed tamsulosin 0.4 mg capsule 0.4 mg PO DAILY PRN 03/11/21 04/05/22 lisinopril 10 mg tablet 20 mg PO DAILY 04/05/2203/12 rosuvastatin 20 mg tablet 10 mg PO DAILY 04/05/2203/12 Allergies Allergy/AdvReac Type Severity Reaction Status Date / Time amlodipine AdvReac Intermediate Sluggish Uncoded 04/24/25 16:49 [facility] ED PFS: Medical History (Updated 04/24/25 @ 00:00 by IMER Bowden) Lower urinary tract symptoms (LUTS) Elevated PSA Surgical History Hx of arthroscopy of right knee Family History Mother , AT AGE 64 Heart disease CAD (coronary artery disease) Father Healthy adult CAD (coronary artery disease) Lung disease Grandmother Cancer Diabetes Denies family history of Clotting disorder Dementia Chronic kidney disease (CKD) Suicide Anesthesia complication Bleeding disorder Stroke Social History Smoking and tobacco/nicotine status: never used tobacco/nicotine Alcohol intake: current Alcohol intake frequency: few times a month Substance/Drug Use: never Adopted: No Caregiver/support person: No Lives independently: No Household members: spouse Marital status: Current occupational status: employed Current gender identity: Male Physical Exam Const: COMMON NORMALS: no acute distress, patient oriented x3 and alert HENMT: COMMON NORMALS: normocephalic and atraumatic HEAD & SCALP: normocephalic and atraumatic Eye: COMMON NORMALS: Equal, round and reactive pupils present, EOMs intact bilaterally and no scleral icterus PUPIL: Yes Equal, round and reactive pupils present Resp: COMMON NORMALS: normal respiratory effort and No retractions Cardio: COMMON NORMALS: regular rate, regular rhythm and No murmurs present (Cardio) RATE: regular rate RHYTHM: regular rhythm GI: COMMON NORMALS: Normal to inspection, nondistended, normoactive bowel sounds present, Soft to palpation and non-tender PALPATION: Yes Soft to palpation : OTHER: Araujo catheter in situ; ~1000 mL drained; no suprapubic fullness. Neuro: COMMON NORMALS: patient oriented x3 SENSORIUM/ORIENTATION: Yes alert Skin: COMMON NORMALS: no rashes or lesions noted GENERAL SKIN EXAM: no rashes or lesions noted Course Vital Signs: Vital signs: Vital Signs Temperature 98.2 F 04/24/25 16:49 Pulse Rate 82 04/24/25 16:49 Respiratory Rate 16 04/24/25 16:49 Blood Pressure 126/82 04/24/25 16:49 Pulse Oximetry 98 04/24/25 16:49 Oxygen Delivery Me thod Room Air 04/24/25 16:49 MDM - Male Medical Decision Making 65 year-old male with chronic lower urinary tract symptoms due to enlarged prostate presents with acute urinary retention after a procedure under anesthesia earlier today. Reports recent dysuria and concern for UTI. Araujo placed with ~1 L output and pain relief. PE: no distress, no suprapubic fullness, Araujo in place with continuous drainage. Acute urinary retention: likely multifactorial with benign prostatic hyperplasia and perioperative factors (anesthesia, possible prior intraoperative catheter causing urethral/prostatic inflammation). UTI considered given dysuria; infection status pending urinalysis. Urinalysis ordered; antibiotics to be given only if urinalysis suggests infection. Araujo to remain in place for several days; provide leg bag as needed. Continue Tamsulosin daily. Urology follow-up ([facility]) for trial of void and discussion of TURP if recurrent retention. Lab Data Laboratory Results Urine Color Yellow (Yellow) 04/24/25 17:40 Urine Appearance Clear (CLEAR) 04/24/25 17:40 Urine pH 7.5 (5-7) 04/24/25 17:40 Ur Specific [place] 1.011 (1.005-1.030) 04/24/25 17:40 Urine Protein 1+ (Negative) A 04/24/25 17:40 Urine Glucose (UA) Trace (Normal) H 04/24/25 17:40 Urine Ketones Negative (Negative) 04/24/25 17:40 Urine Blood 2+ (Negative) A 04/24/25 17:40 Urine Nitrate Negative (Negative) 04/24/25 17:40 Urine Bilirubin Negative (Negative) 04/24/25 17:40 Urine Urobilinogen 1.0 mg/dL (Negative) 04/24/25 17:40 Ur Leukocyte Esterase Negative (Negative) 04/24/25 17:40 Urine RBC >100 /hpf (0-2) H 04/24/25 17:40 Urine WBC 0-5 /hpf (0-5) 04/24/25 17:40 Ur Squamous Epith Cells 0-5 /hpf (0-5) 04/24/25 17:40 Amorphous Sediment Not Reportable 04/24/25 17:40 Urine Bacteria None seen /hpf (NONE) 04/24/25 17:40 Hyaline Casts 0.81 /lpf 04/24/25 17:40 No radiology studies performed this visit Discharge Plan Discharge Patient Disposition: Home Condition: Stable Prescriptions: No Action rosuvastatin 20 mg tablet 10 mg PO DAILY tamsulosin 0.4 mg capsule 0.4 mg PO DAILY PRN lisinopril 10 mg tablet 20 mg PO DAILY Discharge Orders: Discharge ED (Routine); Ordered 04/24/25 Ordered By: Jaxson Talbert Referrals: Scott Hanna MD [Primary Care Provider, Internal Medicine] Discharge Diet: Usual diet Discharge Activity: Increase activity as tolerated Patient Instructions: Urinary Retention in Men (ED), Araujo Catheter Placement and Care (ED), Patient Portal & Jac[facility] Instructions Activity Restrictions/Additional Instructions: Please contact your urologist to be seen as soon as possible in the clinic for trial of voiding after catheter was removed to see if you are able to urinate without it. There is no evidence of infection at this time so no need for antibiotics. Print Language: Zambian Coding Level of Care Code ED Eye Glass Frame Polisher for Marino Monroe
[2025-04-24 18:22] LABS: Glucose Urine UA Trace (Normal); Nitrate Urine Negative (Negative); Specific Gravity, Urine 1.011 (1.005-1.030)
== END 2025-04-24 19:47 | disposition home or self-care (01) ==
PROVIDERS: Emergency Provider Student in an Organized Health Care Education/Training Program; PCP Internal Medicine
DX: N40.1 Benign prostatic hyperplasia with lower urinary tract symptoms (principal); R33.8 Other retention of urine; R30.0 Dysuria; Z98.890 Other specified postprocedural states
CPT/HCPCS: 51702; 81001; 87086; 99283